=== PATIENT | male | born 1995 | race Caucasian/White ===

== ENCOUNTER 2016-09-23 08:51 | Inpatient (IN) | payer OTHER ==
[~2016-09-23] VITALS: Ht 172.7 cm; Wt 64.8 kg
[2016-09-23] VITALS (10 sets, daily range): BP systolic 102–139; BP diastolic 62–93; PULSE 109–129; RESP 17–22; TEMP 97–98.6; O2SAT 97–100
[~2016-09-23 08:51] MED LIST: AMAN100C18 PO; BACL10TA PO; COMMODE PAIL WI1 MIS; DILT30TA PO; DIVA250ER PO; HOSP BED1; IBUP-232 PO; KEPP10002 PO; LORA-392 PO; METO25TA3 PO; OXYC-392 PO; POLY99.0 EACH EYE; PRED1SUS LEFT EYE; SENN1TAB2 PO; SERT25TA83 PO; TRANMIS2; [UNRECOGNIZED DRUG - OTHER]; [UNRECOGNIZED DRUG - SUPPLY]
[2016-09-23] MEDS ORDERED: LORazepam 2 MG/ML VIAL ONE (09:06)
[2016-09-23] MEDS ORDERED: levETIRAcetam 1000 MG INJ 100 ML IV ONE ×3 (09:15→21:00)
[2016-09-23] MEDS ORDERED: LORazepam 2 MG/ML VIAL IV PUSH ONE (09:15)
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
[2016-09-23 09:18] LABS: AUTOMATED NEUTROPHIL # 3.4 TH/MM3 (1.8-7.7); BASOPHIL % 0.5 % (0.0-2.0); EOSINOPHIL # 0.2 TH/MM3 (0-0.4); EOSINOPHIL % 3.6 % (0.0-4.0); HEMATOCRIT 42.8 % (39.0-51.0); HEMO FLAGS DIFF FINAL; LYMPH % 23.9 % (9.0-44.0); LYMPHOCYTE # 1.4 TH/MM3 (1.0-4.8); MEAN CELL VOLUME 88.5 FL (80.0-100.0); MEAN CORPUSCULAR HEMOGLOBIN 30.2 PG (27.0-34.0); MEAN CORPUSCULAR HGB CONC 34.2 % (32.0-36.0); MONO % 13.3 % (0.0-8.0); NEUT % 58.7 % (16.0-70.0); PLATELET COUNT 246 TH/MM3 (150-450); RED BLOOD COUNT 4.84 MIL/MM3 (4.50-5.90); RED CELL DISTRIBUTION WIDTH 14.2 % (11.6-17.2); WHITE BLOOD COUNT 5.9 TH/MM3 (4.0-11.0)
[2016-09-23] MEDS ORDERED: SENN8.6C PO (09:18)
[2016-09-23 09:33] LABS: BICARBONATE 30.8 MEQ/L (21.0-32.0); MAGNESIUM 1.9 MG/DL (1.5-2.5)
[2016-09-23 09:35] LABS: POTASSIUM 4.6 MEQ/L (3.5-5.1)
--- NOTE | 2016-09-23 09:49 | RADRPT ---
EXAM DATE/TIME: 09/23/2016 09:22 [facility] COMPARISON: CT BRAIN W/O CONTRAST, August 13, 2016, 22:39. INDICATIONS : Seizure today RADIATION DOSE: 39.53 CTDIvol (mGy) MEDICAL HISTORY : Traumatic brain injury SURGICAL HISTORY : Craniotomy. [employer] shunt ENCOUNTER: Initial ACUITY: 1 day PAIN SCALE: 0/10 LOCATION: cranial TECHNIQUE: Multiple contiguous axial images were obtained of the head. Using automated exposure control and adj ustment of the mA and/or kV according to patient size, radiation dose was kept as low as reasonably a chievable to obtain optimal diagnostic quality images. FINDINGS: Postsurgical changes are again noted status post right temporal and frontal craniotomy. The vent ricular shunt catheter remains in place via a left frontal approach with the tip in the right lateral ventricle. The ventricular system is stable in appearance with diffuse dilatation. A low density are a is again noted along the right frontal and temporal lobes. This is not significantly changed. There is no new intracranial hemorrhage, mass effect or midline shift. The posterior fossa and brainstem r emain intact. CONCLUSION: 1. No acute hemorrhage or mass effect. 2. Stable postsurgical changes. 3. Ventricular shunt catheter remains in place with stable appearance of the ventricular system. Farzad Smith MD on September 23, 2016 at 9:39 Board Certified Radiologist. This report was verified electronically.
--- NOTE | 2016-09-23 11:04 | RADRPT ---
EXAM DATE/TIME: 09/23/2016 10:14 [facility] COMPARISON: CT BRAIN W/O CONTRAST, September 23, 2016, 9:22. INDICATIONS : Seizures. MEDICAL HISTORY : Traumatic brain injury SURGICAL HISTORY : Craniotomy, INS[employer]OR [employer] shunt ENCOUNTER: Initial ACUITY: 1 day PAIN SCORE: Non-responsive. LOCATION: cranial FINDINGS: Radiograph of the skull, neck, chest and abdomen performed to evaluate shunt patency. The shunt cath eter is seen entering the left frontoparietal region with its tip crossing midline. The catheter is continuous in its course terminating in the midabdomen No catheter disruption is iden tified. The visualized heart, lungs and abdominal structures are intact. CONCLUSION: Intact shunt. Shaun Wallace MD on September 23, 2016 at 11:00 Board Certified Radiologist. This report was verified electronically.
[2016-09-23] MEDS ORDERED: SODIUM CHLORIDE 0.9% FLUSH 5 ML FLUSH IVF PRN (11:45)
[2016-09-23] MEDS ORDERED: LORazepam 2 MG/ML VIAL IM ONE (11:45)
[2016-09-23] MEDS ORDERED: LORazepam 2 MG/ML VIAL IV PRN ×2 (11:45→12:00)
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
[2016-09-23] MEDS ORDERED: ARTIFICIAL TEARS OPTH SOLN 15 ML BTL EACH EYE PRN (12:00)
[2016-09-23] MEDS ORDERED: DOCUSATE SODIUM 50 MG/SENNA 8.6 MG TAB PO PRN (12:00)
[2016-09-23] MEDS ORDERED: AMANTADINE HCL 100 MG CAP PO SCH (12:00)
[2016-09-23] MEDS ORDERED: ACETAMINOPHEN 325 MG TAB PO PRN (12:00)
[2016-09-23] MEDS ORDERED: BACLOFEN 10 MG TAB PO SCH (13:00)
[2016-09-23] MEDS ORDERED: PHENYTOIN INJ 1,000 MG in SODIUM CHLORIDE 0.9% INJ 100 ML IV ONE ×4 (13:00)
[2016-09-23] MEDS: DILTIAZEM HCL 30 MG TAB PO SCH ×2 (13:21→21:35)
[2016-09-23] MEDS: prednisoLONE ACETATE 1% OPHT SUSP 5 ML BTL LEFT EYE SCH ×2 (13:21→21:00)
[2016-09-23] MEDS ORDERED: METOPROLOL TARTRATE 5 MG/5 ML VIAL IV PUSH PRN (13:45)
[2016-09-23] MEDS: IBUPROFEN 600 MG TAB PO SCH ×2 (13:52→21:36)
[2016-09-23] MEDS: ONDANSETRON HCL 4 MG/2 ML VIAL IV PRN (14:15)
[2016-09-23] MEDS: DEXT 5%-NACL 0.45% 1000 ML INJ 1,000 ML IV SCH (14:15)
--- NOTE | 2016-09-23 17:46 | EKG ---
Date Performed: 09/23/2016 Time Performed: 08:58:34 PTAGE: 20 years EKG: Sinus rhythm MARKED RIGHT AXIS DEVIATION NONSPECIFIC ST ELEVATION Since previous tracing, no significant change n oted ABNORMAL ECG PREVIOUS TRACING : 05/30/2016 05.19.28 DOCTOR: Mathew Whipple Interpretating Date/Time 09/23/2016 17:44:34
[2016-09-23] MEDS: SODIUM CHLORIDE 0.9% FLUSH 5 ML FLUSH IVF SCH (21:00)
[2016-09-23] MEDS ORDERED: levETIRAcetam 500 MG TAB PO SCH (21:00)
[2016-09-23] MEDS ORDERED: DIVALPROEX SODIUM E.R. 250 MG TAB PO SCH (21:00)
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
[2016-09-23] MEDS ORDERED: PILL SPLITTER OTHER PRN (21:30)
[2016-09-23] MEDS: DOCUSATE SODIUM 50 MG/SENNA 8.6 MG TAB PO SCH (21:36)
[2016-09-23] MEDS: METOPROLOL TARTRATE 25 MG TAB PO SCH (21:36)
[2016-09-23] MEDS: PHENYTOIN INJ 100 MG/2 ML VIAL IVS SCH (21:37)
[2016-09-23] MEDS: DIVALPROEX SODIUM E.R. 500 MG TAB PO SCH (21:41)
--- NOTE | 2016-09-23 23:08 | PD.CONS ---
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 Cool and dry. HEAD: Atraumatic. Normocephalic. No temporal or scalp tenderness.Shunt tract without edema or erythema EYES: left corneal opacity ENT: oropharynx clear NECK: Trachea midline. No JVD or lymphadenopathy. Supple, nontender, no meningeal signs. CARDIOVASCULAR: Regular rate and rhythm without murmurs, gallops, or rubs. RESPIRATORY: Clear to auscultation. Breath sounds equal bilaterally. No wheezes , rales, or rhonchi. GASTROINTESTINAL: Abdomen soft, non-tender, nondistended. No hepato-splenomegaly , or palpable masses. No guarding. MUSCULOSKELETAL: left upper and bilateral lower extremity flexion contractures. left lower extremity atrophy NEUROLOGICAL: Awake and alert. left facial paresis disconjugate EOM follows simple commands responds to some questions significant dysarthria left hemiparesis Laboratory Laboratory Tests Test 09/23/16 09:05 White Blood Count 5.9 Red Blood Count 4.84 Hemoglobin 14.6 Hematocrit 42.8 Mean Corpuscular Volume 88.5 Mean Corpuscular Hemoglobin 30.2 Mean Corpuscular Hemoglobin 34.2 Concent Red Cell Distribution Width 14.2 Platelet Count 246 Mean Platelet Volume 8.7 Neutrophils (%) (Auto) 58.7 Lymphocytes (%) (Auto) 23.9 Monocytes (%) (Auto) 13.3 Eosinophils (%) (Auto) 3.6 Basophils (%) (Auto) 0.5 Neutrophils # (Auto) 3.4 Lymphocytes # (Auto) 1.4 Monocytes # (Auto) 0.8 Eosinophils # (Auto) 0.2 Basophils # (Auto) 0.0 CBC Comment DIFF FINAL Differential Comment Sodium Level 137 Potassium Level 4.6 Chloride Level 99 Carbon Dioxide Level 30.8 Anion Gap 7 Blood Urea Nitrogen 14 Creatinine 0.67 Estimat Glomerular Filtration 148 Rate Random Glucose 81 Calcium Level 9.7 Magnesium Level 1.9 Total Creatine Kinase 100 Valproic Acid (Depakene) Level 23 Result Diagram: 09/23/16 0905 09/23/16 0905 Imaging 09/23/16 CT Head images reviewed. Moderate hydrocephalus. Shunt Study (Imaging) 09/23/16 0000 Signed Impressions: Service Date/Time: Friday, September 23, 2016 10:14 - CONCLUSION: Intact shunt. Shaun Wallace MD Head CT 09/23/16 0000 Signed Impressions: Service Date/Time: Friday, September 23, 2016 09:22 - CONCLUSION: 1. No acute hemorrhage or mass effect. 2. Stable postsurgical changes. 3. Ventricular shunt catheter remains in place with stable appearance of the ventricular system. Farzad Smith MD Assessment and Plan Assessment and Plan History TBI Possible seizure persistent hydrocephalus. No evidence shunt infection Plan Shunt valve adjusted to 30 mm pressure in ED D/W patients mother in ED check CT in AM Gustavo Laboy MD Sep 23, 2016 23:08
[2016-09-24] MEDS: DEXT 5%-NACL 0.45% 1000 ML INJ 1,000 ML IV SCH ×2 (01:40→13:35)
[2016-09-24 05:30] VITALS: BP 128/69; PULSE 108; RESP 18; TEMP 98.2; O2SAT 99
[2016-09-24] MEDS: IBUPROFEN 600 MG TAB PO SCH ×3 (05:43→21:01)
[2016-09-24] MEDS: PHENYTOIN INJ 100 MG/2 ML VIAL IVS SCH ×3 (05:44→21:00)
[2016-09-24] MEDS: SERTRALINE HCL 50 MG TAB PO SCH (08:06)
[2016-09-24] MEDS: DIVALPROEX SODIUM E.R. 500 MG TAB PO SCH ×2 (08:06→21:00)
[2016-09-24] MEDS: levETIRAcetam 500 MG TAB PO SCH ×2 (08:07→21:00)
[2016-09-24] MEDS: DILTIAZEM HCL 30 MG TAB PO SCH ×4 (08:07→21:00)
[2016-09-24] MEDS: METOPROLOL TARTRATE 25 MG TAB PO SCH ×2 (08:07→21:00)
[2016-09-24] MEDS: SODIUM CHLORIDE 0.9% FLUSH 5 ML FLUSH IVF SCH ×2 (08:08→21:02)
[2016-09-24] MEDS: prednisoLONE ACETATE 1% OPHT SUSP 5 ML BTL LEFT EYE SCH ×4 (08:10→20:59)
--- NOTE | 2016-09-24 08:10 | HHI.PR ---
Review/Management Diagnosis/Plan: (1) Seizure Plan: ? etiology low depakote levels. offending meds would include amantadine, baclofen recs eeg-peniding depakote/dilantin level pending d/c planning once levels therapeutic d/w pt/mom mom wants gi to see him to get peg removed (2) Traumatic brain injury Subjective Subjective Comments No acute events reported; no sz's No headache No chest pain No dyspnea Active Medications Current Medications Medications (Trade) Dose Ordered Sig/Devan Route Start Time Stop Time Status Last Admin (NS Flush) 2 ml UNSCH PRN IVF 09/23/16 11:45 (NS Flush) 2 ml BID IVF 09/23/16 21:00 09/23/16 21:00 (Zofran Inj) 4 mg Q6H PRN IV 09/23/16 11:45 09/23/16 14:15 (Tylenol) 650 mg Q4H PRN PO 09/23/16 12:00 (Anna-Colace) 1 tab BID PRN PO 09/23/16 12:00 (Symmetrel) 200 mg BID@07,12 PO 09/23/16 12:00 09/23/16 13:21 (Cardizem) 30 mg QID PO 09/23/16 13:00 09/23/16 21:35 (Motrin) 600 mg Q8HR PO 09/23/16 14:00 09/24/16 05:43 (Lopressor) 25 mg BID PO 09/23/16 21:00 09/23/16 21:36 (Roxicodone) 5 mg Q4H PRN PO 09/23/16 12:00 (Tears Naturale Opth Soln) 2 drop Q6HR PRN EACH EYE 09/23/16 12:00 (Pred Forte 1% Opth Susp) 1 drop QID LEFT EYE 09/23/16 13:00 09/23/16 13:21 (Zoloft) 25 mg DAILY PO 09/24/16 09:00 (Anna-Colace) 1 tab HS PO 09/23/16 21:00 09/23/16 21:36 (Ativan Inj) 2 mg Q10M PRN IV 09/23/16 12:00 (Dilantin Inj) 150 mg Q8H IVS 09/23/16 21:00 09/24/16 05:44 (Keppra) 500 mg Q12HR PO 09/24/16 09:00 Metoprolol Tartrate 1.25 mg 1.25 mg Q6H PRN IV PUSH 09/23/16 13:45 09/23/16 16:35 (D5W-1/2 NS 1000 ml Inj) 1,000 ml @ 84 mls/hr [id number] IV 09/23/16 13:45 09/23/16 14:15 (Lioresal) 5 mg BID PO 09/24/16 09:00 (Depakote Er) 500 mg BID PO 09/23/16 21:15 09/23/16 21:41 (Pill Splitter) 1 ea UNSCH PRN OTHER 09/23/16 21:30 Allergies Allergies Coded Allergies *MDRO Multi-Drug Resistant Organism (Verified Adverse Reaction, Unknown, ) Review of Systems All other ROS: ROS reviewed as documented in chart, Unable to obtain Exam I&O / VS 09/23/16 09/23/16 09/24/16 15:00 23:00 07:00 Intake Total 0 ml 0 ml Output Total 150 ml Balance 0 ml -150 ml Intake Oral 0 ml 0 ml Output Urine Total 150 ml # Voids 1 4 # Bowel Movements 0 0 Vital Signs Date Time Temp Pulse Resp B/P Pulse Ox O2 Delivery O2 Flow Rate FiO2 09/24/16 05:30 98.2 108 18 128/69 99 09/23/16 23:22 97.9 110 17 130/67 100 09/23/16 23:00 129 09/23/16 21:45 98.3 110 17 136/72 100 09/23/16 18:57 97.0 111 19 124/75 100 09/23/16 17:20 126 18 102/62 98 Room Air 09/23/16 16:34 128 18 139/86 99 Room Air 09/23/16 15:08 112 18 138/76 98 Room Air 09/23/16 11:47 97 09/23/16 11:00 110 20 126/93 97 Room Air 09/23/16 09:04 98.6 109 22 127/76 99 Respiratory: Lungs CTA, Non-labored respirations Cardiology: Normal rate, Regular Rhythm Neurologic: Alert Psychiatric: Cooperative Exam Comments ox 1. dysfluency, follows some simple request, os-blind, left facial weakness, left spastic hemiparesis 1-2 Objective Micro and Labs Laboratory Tests Test 09/23/16 09:05 White Blood Count 5.9 Red Blood Count 4.84 Hemoglobin 14.6 Hematocrit 42.8 Mean Corpuscular Volume 88.5 Mean Corpuscular Hemoglobin 30.2 Mean Corpuscular Hemoglobin 34.2 Concent Red Cell Distribution Width 14.2 Platelet Count 246 Mean Platelet Volume 8.7 Neutrophils (%) (Auto) 58.7 Lymphocytes (%) (Auto) 23.9 Monocytes (%) (Auto) 13.3 Eosinophils (%) (Auto) 3.6 Basophils (%) (Auto) 0.5 Neutrophils # (Auto) 3.4 Lymphocytes # (Auto) 1.4 Monocytes # (Auto) 0.8 Eosinophils # (Auto) 0.2 Basophils # (Auto) 0.0 CBC Comment DIFF FINAL Differential Comment Sodium Level 137 Potassium Level 4.6 Chloride Level 99 Carbon Dioxide Level 30.8 Anion Gap 7 Blood Urea Nitrogen 14 Creatinine 0.67 Estimat Glomerular Filtration 148 Rate Random Glucose 81 Calcium Level 9.7 Magnesium Level 1.9 Total Creatine Kinase 100 Valproic Acid (Depakene) Level 23 Problem Qualifiers (1) Traumatic brain injury: Qualified Code: S06.9X9S - Traumatic brain injury, with loss of consciousness of unspecified duration, sequela Earl Vang MD Sep 24, 2016 08:10
[2016-09-24] MEDS ORDERED: BACLOFEN 10 MG TAB PO SCH (09:00)
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
--- NOTE | 2016-09-24 09:48 | RADRPT ---
EXAM DATE/TIME: 09/24/2016 08:33 [facility] COMPARISON: CT BRAIN W/O CONTRAST, September 23, 2016, 9:22. INDICATIONS: Hydrocephalus, shunt valve changed RADIATION DOSE: 41.62 CTDIvol (mGy) MEDICAL HISTORY: Traumatic brain injury SURGICAL HISTORY: Craniotomy. ENCOUNTER: Subsequent ACUITY: 1 day PAIN SCALE: Non-responsive LOCATION: Cranial TECHNIQUE: Multiple contiguous axial images were obtained of the head. Using automated exposure control and adjustment of the mA and/or kV according to patient size, radiation dose was kept as low as reasonably achievable to obtain optimal diagnostic quality images. FINDINGS: HUMAN RESOURCE ASSISTANT shunt is seen entering from the left. Ventricles remain prominent. Third ventricle remai ns prominent. Fourth ventricle is normal in size. There is no parenchymal hemorrhage, acute infarction or mass lesion. There are no extraaxial fluid collections appreciated. CONCLUSION: Prominent ventricles, unchanged in the interval. Akash Boone MD FACR on September 24, 2016 at 9:33 Board Certified Radiologist. This report was verified electronically.
[2016-09-24 11:00] LABS: AUTOMATED NEUTROPHIL # 3.7 TH/MM3 (1.8-7.7); BASOPHIL % 0.4 % (0.0-2.0); EOSINOPHIL # 0.2 TH/MM3 (0-0.4); EOSINOPHIL % 3.1 % (0.0-4.0); HEMATOCRIT 42.8 % (39.0-51.0); HEMO FLAGS DIFF FINAL; LYMPH % 21.3 % (9.0-44.0); LYMPHOCYTE # 1.3 TH/MM3 (1.0-4.8); MEAN CELL VOLUME 88.8 FL (80.0-100.0); MEAN CORPUSCULAR HEMOGLOBIN 30.9 PG (27.0-34.0); MEAN CORPUSCULAR HGB CONC 34.8 % (32.0-36.0); MONO % 15.3 % (0.0-8.0); NEUT % 59.9 % (16.0-70.0); PLATELET COUNT 314 TH/MM3 (150-450); RED BLOOD COUNT 4.82 MIL/MM3 (4.50-5.90); RED CELL DISTRIBUTION WIDTH 14.3 % (11.6-17.2); WHITE BLOOD COUNT 6.1 TH/MM3 (4.0-11.0)
[2016-09-24] MEDS ORDERED: PRED1SUS LEFT EYE (11:32)
[2016-09-24 13:35] LABS: BICARBONATE 29.5 MEQ/L (21.0-32.0); POTASSIUM 4.1 MEQ/L (3.5-5.1)
--- NOTE | 2016-09-24 14:14 | PD.CONS ---
HPI History of Present Illness This is a 20 year old male patient was involved in a [facility] in April of 2015, at which time he sustained multiple injuries including a traumatic brain injury with subarachnoid hemorrhage and a small right subdural hematoma, bilateral pulmonary contusions left greater than right, left clavicle fracture, nondisplaced L wrist, lunate dislocation, scaphoid fracture, and a displaced ulnar styloid fracture. During that hospitalization, he had a PEG tube placed originally on 05/15/16. He was then discharged to a bat carrier home on 06/05/16 and returned to the hospital on 06/23/16 to have replacement of the craniotomy bone flap, but his CT of the head on 06/24/16 revealed significant hydrocephalus with primarily right hemisphere subdural effusion and he subsequently had COAT AGENT shunt placed on 06/23/16. During this hospitalization, he was found to have his PEG tube dislodged with the stoma closed and subsequently underwent another EGD with peg tube placement on 07/14/16. He then dislodged this again in July and August and required repeat EGD with PEG tube placement. He has since been discharged home and is living with his mother. She reports that he has not used the tube since his discharge home and that he is eating all meals- almost always 100% without coughing or signs of aspiration and that he takes his medications without problems. She reports that she is actually in the process of getting a referral to GI to have this removed, but ended up back in the hospital for seizure activity. He is being worked up by neurology. ST has evaluated the patient and he has passed his swallow evaluation and they have recommended regular diet with thin liquids. His mother is concerned that he will dislodge the peg, as she reports that he is constantly pulling at it. She would like this removed during this hospitalization. (Salima LunaP) PFSH Past Medical History Hx [facility] with multiple injuries including severe traumatic brain injury with subarachnoid hemorrhage and a small right subdural hematoma, bilateral pulmonary contusions left greater than right, left clavicle fracture, nondisplaced L wrist, lunate dislocation, scaphoid fracture, and a displaced ulnar styloid fracture. 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) Medications Allergies Coded Allergies Type Severity Reaction Last Updated Verified *MDRO Multi-Drug Resistant Organism Adverse Reaction Unknown 09/03/16 Yes Active Scripts Medications Dose Route/Sig Days Date Category Dose Instructions Pred Forte Opth Drops (Prednisolone Acetate Opth Drops) 1% Susp 1 Drop LEFT EYE QID 09/24/16 Rx Senna (Sennosides) 8.6 Mg Cap 8.6 Mg PO HS 09/23/16 Reported Baclofen 10 Mg Tab 10 Mg PO TID 09/10/16 Rx Senna-Docusate Sodium (Sennosides-Docusate Sodium) 8.6-50 Mg Tab 2 Tab PO BID PRN 09/03/16 Rx [G-tube] 09/03/16 Rx Remove G-tube if can be done by home health [Overbed trapeze] 09/03/16 Rx Sertraline (Sertraline HCl) 25 Mg Tab 25 Mg PO DAILY 09/03/16 Rx Oxycodone (Oxycodone HCl) 5 Mg Tab 5 Mg PO Q4H PRN 09/03/16 Rx Ibuprofen 600 Mg Tab 600 Mg PO Q8HR 09/03/16 Rx Depakote ER (Divalproex Sodium) 250 Mg Carol 250 Mg PO BID 08/22/16 Rx Ativan (Lorazepam) 0.5 Mg Tab 0.5 Mg PO Q12H PRN 08/22/16 Rx Keppra (Levetiracetam) 1,000 Mg Tab 1,500 Mg PO BID 08/22/16 Rx Amantadine (Amantadine HCl) 100 Mg Cap 200 Mg PO BID@07,12 08/22/16 Rx Metoprolol Tartrate 25 Mg Tab 25 Mg PO BID 08/22/16 Rx Diltiazem (Diltiazem HCl) 30 Mg Tab 30 Mg PO QID 08/22/16 Rx Artificial Tears Opth Drops (Polyvinyl Alcohol) 1.4% Soln 1-2 Drop EACH EYE Q6HR PRN 30 08/22/16 Rx Commode With Arms (Device) 1 Mis Mis 1 Ea .ROUTE DIRECTED 08/19/16 Rx Hospital Bed - Electric 1 Ea Ea 1 Ea .ROUTE DIRECTED 08/19/16 Rx Transfer Board/28"X8-/4" (Device) 1 Mis Mis 1 Ea .ROUTE DIRECTED 08/19/16 Rx Family History Noncontributory Social History Resides with mother, no use of tobacco, etoh, illicit drug use (JeremySalima) Review of Systems Gastrointestinal: DENIES: Abdominal pain, Difficulty Swallowing, Odynophagia Psychiatric: COMPLAINS OF: Anxiety, Confusion, Mood changes ROS Difficult to obtain secondary to mental status (LunaSalima) GI Exam Vitals I&O Vital Signs Date Time Temp Pulse Resp B/P Pulse Ox O2 Delivery O2 Flow Rate FiO2 09/24/16 05:30 98.2 108 18 128/69 99 09/23/16 23:22 97.9 110 17 130/67 100 09/23/16 23:00 129 09/23/16 21:45 98.3 110 17 136/72 100 09/23/16 18:57 97.0 111 19 124/75 100 09/23/16 17:20 126 18 102/62 98 Room Air 09/23/16 16:34 128 18 139/86 99 Room Air 09/23/16 15:08 112 18 138/76 98 Room Air I/O 09/23/16 09/23/16 09/23/16 09/24/16 09/24/16 09/24/16 07:00 15:00 23:00 07:00 15:00 23:00 Intake Total 0 ml 0 ml Output Total 150 ml Balance 0 ml -150 ml Intake Oral 0 ml 0 ml Output Urine Total 150 ml # Voids 1 4 # Bowel Movements 0 0 Imaging Last Impressions Shunt Study (Imaging) 09/23/16 0000 Signed Impressions: Service Date/Time: Friday, September 23, 2016 10:14 - CONCLUSION: Intact shunt. Shaun Wallace MD Head CT 09/23/16 0000 Signed Impressions: Service Date/Time: Friday, September 23, 2016 09:22 - CONCLUSION: 1. No acute hemorrhage or mass effect. 2. Stable postsurgical changes. 3. Ventricular shunt catheter remains in place with stable appearance of the ventricular system. Farzad Smith MD Laboratory Test 09/24/16 10:37 White Blood Count 6.1 TH/MM3 Red Blood Count 4.82 MIL/MM3 Hemoglobin 14.9 GM/DL Hematocrit 42.8 % Mean Corpuscular Volume 88.8 FL Mean Corpuscular Hemoglobin 30.9 PG Mean Corpuscular Hemoglobin 34.8 % Concent Red Cell Distribution Width 14.3 % Platelet Count 314 TH/MM3 Mean Platelet Volume 8.7 FL Neutrophils (%) (Auto) 59.9 % Lymphocytes (%) (Auto) 21.3 % Monocytes (%) (Auto) 15.3 % Eosinophils (%) (Auto) 3.1 % Basophils (%) (Auto) 0.4 % Neutrophils # (Auto) 3.7 TH/MM3 Lymphocytes # (Auto) 1.3 TH/MM3 Monocytes # (Auto) 0.9 TH/MM3 Eosinophils # (Auto) 0.2 TH/MM3 Basophils # (Auto) 0.0 TH/MM3 CBC Comment DIFF FINAL Differential Comment Sodium Level 137 MEQ/L Potassium Level 4.1 MEQ/L Chloride Level 101 MEQ/L Carbon Dioxide Level 29.5 MEQ/L Anion Gap 7 MEQ/L Blood Urea Nitrogen 13 MG/DL Creatinine 0.73 MG/DL Estimat Glomerular Filtration 134 ML/MIN Rate Random Glucose 87 MG/DL Calcium Level 9.7 MG/DL Phenytoin (Dilantin) Level 10.1 MCG/ML Valproic Acid (Depakene) Level 39 MCG/ML Physical Examination HEENT: Normocephalic; atraumatic; no jaundice. CHEST: CTA CARDIAC: RRR ABDOMEN: Soft, nondistended, nontender; no hepatosplenomegaly; bowel sounds are present in all four quadrants. PEG tube with small amount of dried blood at site- no redness, swelling, drainage EXTREMITIES: No clubbing, cyanosis, or edema. SKIN: Normal; no rash; no jaundice. TELEVISION PRESENTER: Alert, answer simple questions. Unable to provide history (Salima Luna) Assessment and Plan Plan ASSESSMENT: - Consulted for PEG tube removal. Pt with hx of TBI with SAH and small right SDH. He had PEG tube placed for nutrition originally on 05/15/16, and again in June, July, and August, after he dislodged his PEG and the stoma closed prior to having new one placed. He has since been discharged home and his mother reports that he is eating 100% meals and medications with no signs of aspiration. ST is following and has recommended regular diet with thin liquids. His mother reports that he often pulls at the tube and is in the process of getting a referral as outpatient to have this removed. S/P removal of PEG tube without difficulty. D/W nurse/mother for him to remain NPO for 4 hours. PLAN: - S/P PEG tube removal - NPO x 4 hours, then resume diet - GI will sign off, please reconsult as needed - Pt seen and examined by Dr. Ballard and myself and this note is written on his behalf (Salima Luna) Physician Comments Seen and examined with DIRECTOR LABOR STANDARDS< PEG removed at the bedside after discussion with Mom. Tolerating PO. Reconsult as needed. Thank you (Chioma Ballard MD) Salima Luna Sep 24, 2016 14:14 Chioma Ballard MD Sep 24, 2016 16:57
[2016-09-24 20:00] VITALS: BP 103/77; PULSE 91; RESP 18; TEMP 97.3; O2SAT 97
[2016-09-24] MEDS: BACLOFEN 10 MG TAB PO SCH (21:00)
[2016-09-24] MEDS: DOCUSATE SODIUM 50 MG/SENNA 8.6 MG TAB PO SCH (21:01)
--- NOTE | 2016-09-24 21:22 | HHI.NSPN ---
History Interval History Patient status post severe traumatic brain injury status post decompressive craniotomy, subsequent bone flap replacement. Previous ventriculoperitoneal shunt placement. Now admitted for probable new onset seizure. CT scan head reveals significant persistent ventriculomegaly. 09/23/16: Shunt valve adjusted to 30 mm water pressure. 09/24/16: Follow-up CT scan had stable. Neurologic exam stable Exam Results Vital Signs Date Time Temp Pulse Resp B/P Pulse Ox O2 Delivery O2 Flow Rate FiO2 09/24/16 05:30 98.2 108 18 128/69 99 09/23/16 17:20 Room Air Intake and Output 09/23/16 09/23/16 09/24/16 08:00 16:00 00:00 Intake Total 0 ml Balance 0 ml Physical Examination Respirations clear Cardiac regular Abdomen soft nontender Shunt tract without erythema or edema or tenderness Relatively awake and alert Tries to say a few words Significant dysarthria Tracks with disconjugate gaze No nuchal rigidity. No significant neck tenderness Grasps with right upper extremity to command. Positive contractures left upper and lower extremity Lab, Micro, Other Results 09/24/16 CT scan head images reviewed. No definite change in ventricular size with shunt adjustment Head CT 09/24/16 0000 Signed Impressions: Service Date/Time: Saturday, September 24, 2016 08:33 - CONCLUSION: Prominent ventricles, unchanged in the interval. Akash Boone MD FACR Laboratory Tests Test 09/24/16 10:37 White Blood Count 6.1 TH/MM3 Red Blood Count 4.82 MIL/MM3 Hemoglobin 14.9 GM/DL Hematocrit 42.8 % Mean Corpuscular Volume 88.8 FL Mean Corpuscular Hemoglobin 30.9 PG Mean Corpuscular Hemoglobin 34.8 % Concent Red Cell Distribution Width 14.3 % Platelet Count 314 TH/MM3 Mean Platelet Volume 8.7 FL Neutrophils (%) (Auto) 59.9 % Lymphocytes (%) (Auto) 21.3 % Monocytes (%) (Auto) 15.3 % Eosinophils (%) (Auto) 3.1 % Basophils (%) (Auto) 0.4 % Neutrophils # (Auto) 3.7 TH/MM3 Lymphocytes # (Auto) 1.3 TH/MM3 Monocytes # (Auto) 0.9 TH/MM3 Eosinophils # (Auto) 0.2 TH/MM3 Basophils # (Auto) 0.0 TH/MM3 CBC Comment DIFF FINAL Differential Comment Sodium Level 137 MEQ/L Potassium Level 4.1 MEQ/L Chloride Level 101 MEQ/L Carbon Dioxide Level 29.5 MEQ/L Anion Gap 7 MEQ/L Blood Urea Nitrogen 13 MG/DL Creatinine 0.73 MG/DL Estimat Glomerular Filtration 134 ML/MIN Rate Random Glucose 87 MG/DL Calcium Level 9.7 MG/DL Phenytoin (Dilantin) Level 10.1 MCG/ML Valproic Acid (Depakene) Level 39 MCG/ML Medical Decision Making Impression and Plan Impression: 1. Stable neurologic function and CT scan head following shunt adjustment. Plan: Discussed with patient's mother today Continue observation. Plan follow-up CT scan in 7-10 days No definite evidence of shunt infection at present Gustavo Laboy MD Sep 24, 2016 21:22
[2016-09-25] VITALS: BP 110/79; PULSE 83; RESP 18; TEMP 97; O2SAT 98
[2016-09-25] MEDS: DEXT 5%-NACL 0.45% 1000 ML INJ 1,000 ML IV SCH ×2 (01:30→13:25)
[2016-09-25 04:00] VITALS: BP 118/73; PULSE 86; RESP 18; TEMP 97.4; O2SAT 97
[2016-09-25] MEDS: PHENYTOIN INJ 100 MG/2 ML VIAL IVS SCH ×3 (05:27→21:29)
[2016-09-25] MEDS: IBUPROFEN 600 MG TAB PO SCH ×3 (05:30→21:28)
[2016-09-25] MEDS: SODIUM CHLORIDE 0.9% FLUSH 5 ML FLUSH IVF SCH ×2 (08:16→21:25)
[2016-09-25] MEDS: DILTIAZEM HCL 30 MG TAB PO SCH ×4 (08:16→21:39)
[2016-09-25] MEDS: DIVALPROEX SODIUM E.R. 500 MG TAB PO SCH ×2 (08:16→21:00)
[2016-09-25] MEDS: BACLOFEN 10 MG TAB PO SCH ×2 (08:17→21:29)
[2016-09-25] MEDS: levETIRAcetam 500 MG TAB PO SCH ×3 (08:17→21:32)
[2016-09-25] MEDS: SERTRALINE HCL 50 MG TAB PO SCH (08:17)
[2016-09-25] MEDS: METOPROLOL TARTRATE 25 MG TAB PO SCH ×2 (08:17→21:27)
[2016-09-25] MEDS: prednisoLONE ACETATE 1% OPHT SUSP 5 ML BTL LEFT EYE SCH ×4 (08:17→21:32)
[2016-09-25 08:27] VITALS: BP 134/72; PULSE 96; RESP 16; TEMP 96.2; O2SAT 95
--- NOTE | 2016-09-25 09:00 | HHI.PR ---
Review/Management Diagnosis/Plan: (1) Seizure Plan: ? etiology low depakote levels. offending meds would include amantadine, baclofen stable recs eeg-pending depakote 50 d/c dilantin on d/c keppra increased to 750mg bid d/c planning from neurology (2) Traumatic brain injury Subjective Subjective Comments No acute events reported; no sz slept well; ate well last night per mother at bedside mild frontal headache No chest pain No dyspnea Active Medications Current Medications Medications (Trade) Dose Ordered Sig/Devan Route Start Time Stop Time Status Last Admin (NS Flush) 2 ml UNSCH PRN IVF 09/23/16 11:45 (NS Flush) 2 ml BID IVF 09/23/16 21:00 09/25/16 08:16 (Zofran Inj) 4 mg Q6H PRN IV 09/23/16 11:45 09/23/16 14:15 (Tylenol) 650 mg Q4H PRN PO 09/23/16 12:00 (Anna-Colace) 1 tab BID PRN PO 09/23/16 12:00 (Cardizem) 30 mg QID PO 09/23/16 13:00 09/25/16 08:16 (Motrin) 600 mg Q8HR PO 09/23/16 14:00 09/25/16 05:30 (Lopressor) 25 mg BID PO 09/23/16 21:00 09/25/16 08:17 (Roxicodone) 5 mg Q4H PRN PO 09/23/16 12:00 09/25/16 03:32 (Tears Naturale Opth Soln) 2 drop Q6HR PRN EACH EYE 09/23/16 12:00 (Pred Forte 1% Opth Susp) 1 drop QID LEFT EYE 09/23/16 13:00 09/25/16 08:17 (Zoloft) 25 mg DAILY PO 09/24/16 09:00 09/25/16 08:17 (Anna-Colace) 1 tab HS PO 09/23/16 21:00 09/24/16 21:01 (Ativan Inj) 2 mg Q10M PRN IV 09/23/16 12:00 (Dilantin Inj) 150 mg Q8H IVS 09/23/16 21:00 09/25/16 05:27 (Keppra) 500 mg Q12HR PO 09/24/16 09:00 09/25/16 08:17 Metoprolol Tartrate 1.25 mg 1.25 mg Q6H PRN IV PUSH 09/23/16 13:45 09/23/16 16:35 (D5W-1/2 NS 1000 ml Inj) 1,000 ml @ 84 mls/hr [id number] IV 09/23/16 13:45 09/23/16 14:15 (Depakote Er) 500 mg BID PO 09/23/16 21:15 09/25/16 08:16 (Pill Splitter) 1 ea UNSCH PRN OTHER 09/23/16 21:30 (Lioresal) 5 mg Taper BID PO 09/24/16 21:00 09/28/16 20:59 09/25/16 08:17 Allergies Allergies Coded Allergies *MDRO Multi-Drug Resistant Organism (Verified Adverse Reaction, Unknown, ) Review of Systems All other ROS: ROS reviewed as documented in chart, Unable to obtain Exam I&O / VS 09/24/16 09/24/16 09/25/16 15:00 23:00 07:00 Intake Total 600 ml 120 ml Balance 600 ml 120 ml Intake Oral 600 ml 120 ml # Voids 6 2 # Bowel Movements 2 Vital Signs Date Time Temp Pulse Resp B/P Pulse Ox O2 Delivery O2 Flow Rate FiO2 09/25/16 08:27 96.2 96 16 134/72 95 09/25/16 04:00 97.4 86 18 118/73 97 09/25/16 00:00 97.0 83 18 110/79 98 09/24/16 20:00 97.3 91 18 103/77 97 Respiratory: Lungs CTA, Non-labored respirations Cardiology: Normal rate, Regular Rhythm Neurologic: Alert Psychiatric: Cooperative Exam Comments ox 1. dysfluency, follows some simple request, os-blind, left facial weakness, left spastic hemiparesis 1-2/5 Objective Micro and Labs Laboratory Tests Test 09/24/16 09/24/16 09/25/16 10:37 20:43 06:53 White Blood Count 6.1 Red Blood Count 4.82 Hemoglobin 14.9 Hematocrit 42.8 Mean Corpuscular Volume 88.8 Mean Corpuscular Hemoglobin 30.9 Mean Corpuscular Hemoglobin 34.8 Concent Red Cell Distribution Width 14.3 Platelet Count 314 Mean Platelet Volume 8.7 Neutrophils (%) (Auto) 59.9 Lymphocytes (%) (Auto) 21.3 Monocytes (%) (Auto) 15.3 Eosinophils (%) (Auto) 3.1 Basophils (%) (Auto) 0.4 Neutrophils # (Auto) 3.7 Lymphocytes # (Auto) 1.3 Monocytes # (Auto) 0.9 Eosinophils # (Auto) 0.2 Basophils # (Auto) 0.0 CBC Comment DIFF FINAL Differential Comment Sodium Level 137 Potassium Level 4.1 Chloride Level 101 Carbon Dioxide Level 29.5 Anion Gap 7 Blood Urea Nitrogen 13 Creatinine 0.73 Estimat Glomerular Filtration 134 Rate Random Glucose 87 Calcium Level 9.7 Phenytoin (Dilantin) Level 10.1 8.6 Valproic Acid (Depakene) Level 39 37 50 Problem Qualifiers (1) Traumatic brain injury: Qualified Code: S06.9X9S - Traumatic brain injury, with loss of consciousness of unspecified duration, sequela Earl Vang MD Sep 25, 2016 09:00
[2016-09-25] MEDS ORDERED: PILL SPLITTER OTHER PRN (09:15)
[2016-09-25] MEDS ORDERED: ceFAZolin 2 GM PREMIX 50 ML IV SCH (10:30)
--- NOTE | 2016-09-25 11:19 | HHI.FPPN ---
Subjective Remarks Patient seen and examined. No acute events overnight. Vital signs stable. Afebrile. Per nurse, patient is a very combative (Dona Collier MD R3) Objective Vitals Vital Signs Date Time Temp Pulse Resp B/P Pulse Ox O2 Delivery O2 Flow Rate FiO2 09/25/16 08:27 96.2 96 16 134/72 95 09/25/16 04:00 97.4 86 18 118/73 97 09/25/16 00:00 97.0 83 18 110/79 98 09/24/16 20:00 97.3 91 18 103/77 97 I/O 09/24/16 09/24/16 09/24/16 09/25/16 09/25/16 09/25/16 07:00 15:00 23:00 07:00 15:00 23:00 Intake Total 0 ml 600 ml 120 ml Output Total 150 ml Balance -150 ml 600 ml 120 ml Intake Oral 0 ml 600 ml 120 ml Output Urine Total 150 ml # Voids 4 6 2 # Bowel Movements 0 2 (Dona Collier MD R3) Result Diagram: 09/24/16 1037 09/24/[address] 09/24/16 0000 Signed Impressions: Service Date/Time: Saturday, September 24, 2016 08:33 - CONCLUSION: Prominent ventricles, unchanged in the interval. Akash Boone MD FACR Shunt Study (Imaging) 09/23/16 0000 Signed Impressions: Service Date/Time: Friday, September 23, 2016 10:14 - CONCLUSION: Intact shunt. Shaun Wallace MD Objective Remarks GENERAL: Well developed thin adult white male lying in bed arousable but minimally cooperative SKIN: No rashes, ecchymoses or lesions. Cool and dry. Multiple tattoos in chest and upper extremities. HEAD: Head with scar from bone flap replacement after craniectomy but only obvious on close examination EYES: Abnormal opaque area central eye on the left but no current ulcer or conjunctival or eyelid problems. ENT: MMM, OP without erythema, tonsillar swelling, or exudate. NECK: Supple, no lymphadenopathy. CARDIOVASCULAR: RRR. Normal S1/S2. No MRG RESPIRATORY: CTAB. No crackles or wheezes. GASTROINTESTINAL: Abdomen soft, non-distended, G-tube removed. Area without evidence of infection. MUSCULOSKELETAL: Extremities without clubbing, cyanosis, or edema. NEUROLOGICAL: Sedated but arousable. Patient is non-cooperative. Unable to assess strength as patient was unwilling to follow commands. (Dona Collier MD R3) A/P Assessment and Plan This is a 20-year-old male past medical history significant for traumatic brain injury admitted for new onset seizures. Clinically stable since admission. No further evidence of seizures. Discharge Planning Anticipate discharge home 1-2 days pending neurology and neurosurgical clearance. s/d/w Dr. Velazquez (Dona Collier MD R3) Attending Attestation Patient seen and examined. Case reviewed and discussed with the resident team. Agree with plan of care as discussed with me and documented in the resident note. unsure if he is taking his meds properly vs spitting them out. his mother seems to have better success in getting him to take his meds. No adverse effects from stopping steroid drops (Caroline Velazquez MD) Problem List: (1) New onset seizure Status: Acute Plan: Admitted for new onset seizures. Had seizure while obtaining H&P. Status post Ativan 2, Keppra 1g x 1, and Dilantin 1 g x 1 in ED. No seizure activity since admission. CT on 09/23 and 09/24 without acute processes. -Neurology consulted: Dilantin level 50 today, Phenytoin 8.6 * Keppra increased to 750mg BID * Depakote ER 500 mg BID * Continue Dilantin 150mg po Q8h and discontinue at discharge -Neurosurgery consulted: Repeat CT on 09/24 stable. No evidence of shunt infection * ?plan to adjust TAIL WORKER shunt * Follow up CT in 7-10 days -Seizure precautions * EEG Ordered: Results pending * CBC, BMP ordered for the a.m. -Avoid seizure lower threshold meds. Amantadine discontinue and weaning Baclofen. (2) Traumatic brain injury Status: Chronic Plan: History of traumatic brain injury. * Continued home pain medications * Continue metoprolol 25 mg by mouth twice a day * PT/OT (3) S/P TAIL WORKER shunt Status: Acute Plan: History of TAIL WORKER shunt. Neurosurgery software sales consultant recommendations appreciated * Possible plan to adjust TAIL WORKER shunt. Will await further recommendations (4) History of gastrostomy tube placement Status: Resolved Plan: Bedside removal of PEG tube on 2/8 per GI as patient is tolerating po. No evidence of infection around site (5) Nutrition, metabolism, and development symptoms Status: Acute Plan: Diet: Regular as tolerated Fluid: HLIV. Encourage oral fluid hydration Electrolytes: WNL. (Dona Collier MD R3) Problem Qualifiers (1) Traumatic brain injury: Qualified Code: S06.9X9S - Traumatic brain injury, with loss of consciousness of unspecified duration, sequela Dona Collier MD R3 Sep 25, 2016 11:19 Caroline Velazquez MD Sep 26, 2016 13:57
[2016-09-25 12:24] VITALS: BP 129/73; PULSE 83; RESP 17; TEMP 96; O2SAT 97
[2016-09-25] MEDS: ONDANSETRON HCL 4 MG/2 ML VIAL IV PRN (13:39)
--- NOTE | 2016-09-25 14:30 | RADRPT ---
EXAM DATE/TIME: 09/25/2016 13:48 [facility] COMPARISON: No previous studies available for comparison. INDICATIONS : Shunt valve setting. MEDICAL HISTORY : None. SURGICAL HISTORY : None. ENCOUNTER: Initial ACUITY: 1 day PAIN SCORE: Non-responsive. LOCATION: skull. FINDINGS: A single view of the skull was obtained and demonstrates the shunt is now in place. The programming u nit demonstrates a pressure setting of approximately 30 mm of water. CONCLUSION: The pressure is set to approximately 30 mm of water. Farzad Smith MD on September 25, 2016 at 14:26 Board Certified Radiologist. This report was verified electronically.
--- NOTE | 2016-09-25 16:17 | MG ---
cc: JORGE MUNGUIA Lab No: [id number] Date: 09/25/2016 Age: 20 Sex: M Race: Hyperventilation, photic stimulation was not performed. A 20-year-old man, twitching of his face, subarachnoid hemorrhage, traumatic brain injury, Keppra, Depakote, Dilantin, Motrin, baclofen. There does appear to be PLED like activity coming out of the right posterior temporal, mid temporal and frontal head region at about 1 Hz. Phase reversing spike is seen ___ slow waves does not really effect the left hemisphere at all and is just on the right side, and this continues throughout the entire recording and is quite prominent as constituting a spike wave at approximately 1 Hz. Some leg jerking was noted which did not correlate with any change in the EEG. A left hand jerk was seen but did not correlate with any significant change in the EEG. IMPRESSION Right hemisphere, pretty much the whole frontal temporal lobe showing a right-sided PLED at 1 Hz in the form of a spike wave continuously throughout the entire recording and a lesion here should be ruled out. This certainly is a seizure focus for this patient. MD RHONDA Becker/REGGIE /2:51 PM /4:03 PM
[2016-09-25 16:26] VITALS: BP 119/70; PULSE 97
[2016-09-25 20:41] VITALS: BP 131/76; PULSE 91; RESP 18; TEMP 97.1; O2SAT 97
[2016-09-25] MEDS: DOCUSATE SODIUM 50 MG/SENNA 8.6 MG TAB PO SCH (21:39)
--- NOTE | 2016-09-25 23:44 | HHI.NSPN ---
History Interval History Patient status post severe traumatic brain injury status post decompressive craniotomy, subsequent bone flap replacement. Previous ventriculoperitoneal shunt placement. Now admitted for probable new onset seizure. CT scan head reveals significant persistent ventriculomegaly. 09/23/16: Shunt valve adjusted to 30 mm water pressure. 09/24/16: Follow-up CT scan had stable. Neurologic exam stable Exam Results Vital Signs Date Time Temp Pulse Resp B/P Pulse Ox O2 Delivery O2 Flow Rate FiO2 09/25/16 22:28 15 09/25/16 20:41 97.1 91 131/76 97 09/23/16 17:20 Room Air Intake and Output 09/24/16 09/24/16 09/25/16 08:00 16:00 00:00 Intake Total 0 ml 600 ml Output Total 150 ml Balance -150 ml 600 ml Physical Examination Respirations clear Cardiac regular Abdomen soft nontender Shunt tract without erythema or edema or tenderness Relatively awake and alert Tries to say a few words Significant dysarthria Tracks with disconjugate gaze No nuchal rigidity. No significant neck tenderness Grasps with right upper extremity to command. Positive contractures left upper and lower extremity Lab, Micro, Other Results Laboratory Tests Test 09/25/16 06:53 Phenytoin (Dilantin) Level 8.6 MCG/ML Valproic Acid (Depakene) Level 50 MCG/ML Medical Decision Making Impression and Plan Impression: 1. Stable neurologic function and CT scan head following shunt adjustment. Plan: Discussed with patient's mother today No significant change in hydrocephalus on CT scan following shunt adjustment. Option of nucleotide shunt study discussed, and she does wish to proceed with this test on Continue observation. Plan follow-up CT scan in 7-10 days No definite evidence of shunt infection at present Gustavo Laboy MD Sep 25, 2016 23:44
[2016-09-26] VITALS (7 sets, daily range): BP systolic 106–134; BP diastolic 57–78; PULSE 74–97; RESP 16–20; TEMP 95.6–98.6; O2SAT 95–99
[2016-09-26] MEDS: DEXT 5%-NACL 0.45% 1000 ML INJ 1,000 ML IV SCH ×2 (02:04→22:55)
[2016-09-26] MEDS: PHENYTOIN INJ 100 MG/2 ML VIAL IVS SCH (04:36)
[2016-09-26] MEDS: IBUPROFEN 600 MG TAB PO SCH ×3 (05:28→21:33)
[2016-09-26] MEDS: SODIUM CHLORIDE 0.9% FLUSH 5 ML FLUSH IVF SCH ×2 (08:14→21:00)
[2016-09-26] MEDS: SERTRALINE HCL 50 MG TAB PO SCH (08:15)
[2016-09-26] MEDS: BACLOFEN 10 MG TAB PO SCH (08:15)
[2016-09-26] MEDS: DIVALPROEX SODIUM E.R. 500 MG TAB PO SCH ×2 (08:16→21:34)
[2016-09-26] MEDS: METOPROLOL TARTRATE 25 MG TAB PO SCH ×2 (08:16→21:00)
[2016-09-26] MEDS: DILTIAZEM HCL 30 MG TAB PO SCH ×4 (08:16→21:00)
[2016-09-26] MEDS: levETIRAcetam 500 MG TAB PO SCH ×2 (08:16→21:32)
[2016-09-26] MEDS: prednisoLONE ACETATE 1% OPHT SUSP 5 ML BTL LEFT EYE SCH ×4 (08:17→21:00)
--- NOTE | 2016-09-26 08:23 | HHI.PR ---
Review/Management Diagnosis/Plan: (1) Seizure Plan: post-traumatic epilepsy low depakote levels. offending meds would include amantadine, baclofen stable eeg reviewed did get depakote last night- documented as not administered- d/w rn recs exam stable since yesterday; responsive and no twitching noticed continue on keppra/dilantin/depakote d/c planning from neurology if dilantin/depakote levels therapeutic (2) Traumatic brain injury Subjective Subjective Comments No acute events reported apparently had a mild sz yesterday- some twitching noticed by pool hall inspector?; given ativan with resolution- No headache No chest pain No dyspnea Active Medications Current Medications Medications (Trade) Dose Ordered Sig/Devan Route Start Time Stop Time Status Last Admin (NS Flush) 2 ml UNSCH PRN IVF 09/23/16 11:45 (NS Flush) 2 ml BID IVF 09/23/16 21:00 09/25/16 21:25 (Zofran Inj) 4 mg Q6H PRN IV 09/23/16 11:45 09/25/16 13:39 (Tylenol) 650 mg Q4H PRN PO 09/23/16 12:00 (Anna-Colace) 1 tab BID PRN PO 09/23/16 12:00 (Cardizem) 30 mg QID PO 09/23/16 13:00 09/25/16 21:39 (Motrin) 600 mg Q8HR PO 09/23/16 14:00 09/26/16 05:28 (Lopressor) 25 mg BID PO 09/23/16 21:00 09/25/16 21:27 (Roxicodone) 5 mg Q4H PRN PO 09/23/16 12:00 09/25/16 03:32 (Tears Naturale Opth Soln) 2 drop Q6HR PRN EACH EYE 09/23/16 12:00 (Pred Forte 1% Opth Susp) 1 drop QID LEFT EYE 09/23/16 13:00 09/25/16 21:32 (Zoloft) 25 mg DAILY PO 09/24/16 09:00 09/25/16 08:17 (Anna-Colace) 1 tab HS PO 09/23/16 21:00 09/25/16 21:39 (Ativan Inj) 2 mg Q10M PRN IV 09/23/16 12:00 09/25/16 15:53 (Dilantin Inj) 150 mg Q8H IVS 09/23/16 21:00 09/26/16 04:36 Metoprolol Tartrate 1.25 mg 1.25 mg Q6H PRN IV PUSH 09/23/16 13:45 09/23/16 16:35 (D5W-1/2 NS 1000 ml Inj) 1,000 ml @ 84 mls/hr [id number] IV 09/23/16 13:45 09/26/16 02:04 (Depakote Er) 500 mg BID PO 09/23/16 21:15 09/25/16 08:16 (Pill Splitter) 1 ea UNSCH PRN OTHER 09/23/16 21:30 (Lioresal) 5 mg Taper BID PO 09/24/16 21:00 09/28/16 20:59 09/25/16 21:29 (Keppra) 750 mg Q12HR PO 09/25/16 09:00 09/25/16 21:32 (Pill Splitter) 1 ea UNSCH PRN OTHER 09/25/16 09:15 Allergies Allergies Coded Allergies *MDRO Multi-Drug Resistant Organism (Verified Adverse Reaction, Unknown, ) Review of Systems All other ROS: ROS reviewed as documented in chart, Unable to obtain Exam I&O / VS 09/25/16 09/25/16 09/26/16 15:00 23:00 07:00 Intake Total 240 ml 480 ml 670 ml Output Total 30 ml Balance 210 ml 480 ml 670 ml Intake Oral 240 ml 480 ml IV Total 670 ml Emesis 30 ml # Voids 2 3 # Bowel Movements 0 Vital Signs Date Time Temp Pulse Resp B/P Pulse Ox O2 Delivery O2 Flow Rate FiO2 09/26/16 07:31 97.8 74 16 106/57 97 09/26/16 04:00 98.6 77 20 118/62 96 09/26/16 00:00 98.4 97 20 134/71 96 09/25/16 22:28 15 09/25/16 20:41 97.1 91 18 131/76 97 09/25/16 16:26 97 119/70 09/25/16 12:24 96.0 83 17 129/73 97 09/25/16 08:27 96.2 96 16 134/72 95 Respiratory: Lungs CTA, Non-labored respirations Cardiology: Normal rate, Regular Rhythm Neurologic: Alert Psychiatric: Cooperative Exam Comments ox 1. dysfluency, follows some simple request, os-blind, left facial weakness, left spastic hemiparesis 1-2/5 Problem Qualifiers (1) Traumatic brain injury: Qualified Code: S06.9X9S - Traumatic brain injury, with loss of consciousness of unspecified duration, sequela Earl Vang MD Sep 26, 2016 08:23
[2016-09-26] MEDS: PHENYTOIN SODIUM 100 MG CAP PO SCH ×3 (09:58→17:19)
[2016-09-26] MEDS: PHENYTOIN SODIUM 30 MG CAP PO SCH ×3 (10:08→17:19)
--- NOTE | 2016-09-26 11:27 | HHI.FPPN ---
Subjective Remarks Patient seen and examined. No acute events overnight however per nurse, no episodes of seizures noted; however he had some "twitching" but he did received a dose of Ativan. Patient complains of back pain this morning and right sided headaches. No other complaints (Dona Collier MD R3) Objective Vitals Vital Signs Date Time Temp Pulse Resp B/P Pulse Ox O2 Delivery O2 Flow Rate FiO2 09/26/16 08:00 97.8 84 16 106/57 97 09/26/16 07:31 97.8 74 16 106/57 97 09/26/16 04:00 98.6 77 20 118/62 96 09/26/16 00:00 98.4 97 20 134/71 96 09/25/16 22:28 15 09/25/16 20:41 97.1 91 18 131/76 97 09/25/16 16:26 97 119/70 09/25/16 12:24 96.0 83 17 129/73 97 I/O 09/25/16 09/25/16 09/25/16 09/26/16 09/26/16 09/26/16 07:00 15:00 23:00 07:00 15:00 23:00 Intake Total 120 ml 240 ml 480 ml 670 ml Output Total 30 ml Balance 120 ml 210 ml 480 ml 670 ml Intake Oral 120 ml 240 ml 480 ml IV Total 670 ml Emesis 30 ml # Voids 2 2 3 # Bowel Movements 0 (Dona Collier MD R3) Result Diagram: 09/24/16 1037 09/24/16 1037 Imaging Skull X-Ray 09/25/16 0000 Signed Impressions: Service Date/Time: September 13:48 - CONCLUSION: The pressure is set to approximately 30 mm of water. Farzad Smith MD Head CT 09/24/16 0000 Signed Impressions: Service Date/Time: Saturday, September 24, 2016 08:33 - CONCLUSION: Prominent ventricles, unchanged in the interval. Akash Boone MD FACR Shunt Study (Imaging) 09/23/16 0000 Signed Impressions: Service Date/Time: Friday, September 23, 2016 10:14 - CONCLUSION: Intact shunt. Shaun Wallace MD Objective Remarks GENERAL: Well developed thin adult white male lying in bed in NAD. More awake this morning. SKIN: No rashes, ecchymoses or lesions. Cool and dry. Multiple tattoos in chest and upper extremities. HEAD: Head with scar from bone flap replacement after craniectomy but only obvious on close examination EYES: Abnormal opaque area central eye on the left but no current ulcer or conjunctival or eyelid problems. Vision grossly intact. ENT: MMM, OP without erythema, tonsillar swelling, or exudate. NECK: Supple, no lymphadenopathy. CARDIOVASCULAR: RRR. Normal S1/S2. No MRG RESPIRATORY: CTAB. No crackles or wheezes. GASTROINTESTINAL: Abdomen soft, non-distended, G-tube removed. Area without evidence of infection. MUSCULOSKELETAL: Extremities without clubbing, cyanosis, or edema. NEUROLOGICAL: Awake, alert and more cooperative this morning. Follows simple commands. (Dona Collier MD R3) A/P Assessment and Plan This is a 20-year-old male past medical history significant for traumatic brain injury admitted for new onset seizures. Clinically stable since admission. No further evidence of seizures. Discharge Planning Anticipate discharge home 1-2 days pending neurology and neurosurgical clearance. d/w Dr. Velazquez (Dona Collier MD R3) Attending Attestation Patient seen and examined. Case reviewed and discussed with the resident team. Agree with plan of care as discussed with me and documented in the resident note. he is a difficult historian and cannot verifiably state if he has had a seizure but no seizures have been observed by staff or his family since the first day he was admitted (Caroline Velazquez MD) Problem List: (1) New onset seizure Status: Acute Plan: Admitted for new onset seizures. Had seizure while obtaining H&P. Status post Ativan 2, Keppra 1g x 1, and Dilantin 1 g x 1 in ED. No seizure activity since admission. CT on 09/23 and 09/24 without acute processes. -Neurology consulted: Dilantin level 38 today, Phenytoin 6.9 * Keppra 750mg BID * Start Dilantin 130mg po TID. Discontinue IV. * Depakote ER 500 mg BID * EEG 09/25: frontal temporal lob showing right-sided PLED at 1Hz in form of spike wave continuously. -Neurosurgery consulted: Repeat CT on 09/24 s/p shunt adjustment stable. No evidence of shunt infection * Cisternogram pending * Follow up CT in 7-10 days -Seizure precautions -Avoid seizure lower threshold meds. Amantadine discontinue and weaning Baclofen. (2) Traumatic brain injury Status: Chronic Plan: History of traumatic brain injury. * Continued home pain medications * Continue metoprolol 25 mg by mouth twice a day * PT/OT. Continue as outpatient. 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 Neurosurgery clinical application consultant recommendations appreciated (4) History of gastrostomy tube placement Status: Resolved Plan: Bedside removal of PEG tube on 09/24 per GI as patient is tolerating po. No evidence of infection around site (5) Nutrition, metabolism, and development symptoms Status: Acute Plan: Diet: Regular as tolerated Fluid: HLIV. Encourage oral fluid hydration Electrolytes: WNL. (Dona Collier MD R3) Problem Qualifiers (1) Traumatic brain injury: Qualified Code: S06.9X9S - Traumatic brain injury, with loss of consciousness of unspecified duration, sequela Dona Collier MD R3 Sep 26, 2016 11:27 Caroline Velazquez MD Sep 26, 2016 14:11
[2016-09-26] MEDS: ONDANSETRON HCL 4 MG/2 ML VIAL IV PRN (12:08)
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
[2016-09-26] MEDS: DOCUSATE SODIUM 50 MG/SENNA 8.6 MG TAB PO SCH (21:33)
[2016-09-27 00:32] VITALS: BP 127/73; PULSE 86; RESP 20; TEMP 96.2; O2SAT 98
[2016-09-27 05:28] VITALS: BP 116/69; PULSE 78
[2016-09-27] MEDS: IBUPROFEN 600 MG TAB PO SCH ×3 (06:25→21:35)
[2016-09-27 08:13] VITALS: BP 121/68; PULSE 77; RESP 18; TEMP 96; O2SAT 98
--- NOTE | 2016-09-27 08:58 | HHI.FPPN ---
Subjective Remarks Patient seen and examined. No acute events overnight per nurse. VSSAF. He denies any complaints this morning. (Dona Collier MD R3) Objective Vitals Vital Signs Date Time Temp Pulse Resp B/P Pulse Ox O2 Delivery O2 Flow Rate FiO2 09/27/16 08:13 96.0 77 18 121/68 98 09/27/16 05:28 78 116/69 09/27/16 00:32 96.2 86 20 127/73 98 09/26/16 21:09 98.0 85 18 106/65 99 09/26/16 16:23 15 09/26/16 16:00 98.2 88 18 115/78 09/26/16 12:00 95.6 75 18 113/69 95 I/O 09/26/16 09/26/16 09/26/16 09/27/16 09/27/16 09/27/16 07:00 15:00 23:00 07:00 15:00 23:00 Intake Total 670 ml 733 ml 200 ml Balance 670 ml 733 ml 200 ml Intake Oral 120 ml 200 ml IV Total 670 ml 613 ml # Voids 2 4 2 # Bowel Movements 0 (Dona Collier MD R3) Result Diagram: 09/24/16 1037 09/24/16 1037 Imaging Last Impressions CSF Shunt Patency Nuclear Medicine 09/26/16 1200 Signed Impressions: Service Date/Time: Monday, September 26, 2016 13:05 - CONCLUSION: Functioning shunt as described above. Akash Boone MD FACR Skull X-Ray 09/25/16 0000 Signed Impressions: Service Date/Time: September 13:48 - CONCLUSION: The pressure is set to approximately 30 mm of water. Farzad Smith MD Head CT 09/24/16 0000 Signed Impressions: Service Date/Time: Saturday, September 24, 2016 08:33 - CONCLUSION: Prominent ventricles, unchanged in the interval. Akash Boone MD FACR Shunt Study (Imaging) 09/23/16 0000 Signed Impressions: Service Date/Time: Friday, September 23, 2016 10:14 - CONCLUSION: Intact shunt. Shaun Wallace MD Objective Remarks GENERAL: Well developed thin adult white male lying in bed in [facility] SKIN: No rashes, ecchymoses or lesions. Cool and dry. Multiple tattoos in chest and upper extremities. HEAD: Head with scar from bone flap replacement after craniectomy but only obvious on close examination EYES: Abnormal opaque area central eye on the left but no current ulcer or conjunctival or eyelid problems. Vision grossly intact. ENT: MMM, OP without erythema, tonsillar swelling, or exudate. NECK: Supple, no lymphadenopathy. CARDIOVASCULAR: RRR. Normal S1/S2. No MRG RESPIRATORY: CTAB. No crackles or wheezes. GASTROINTESTINAL: Abdomen soft, non-distended, G-tube removed. Area without evidence of infection. MUSCULOSKELETAL: Extremities without clubbing, cyanosis, or edema. NEUROLOGICAL: Awake, alert and more cooperative this morning. Follows simple commands. (Dona Collier MD R3) A/P Assessment and Plan This is a 20-year-old male past medical history significant for traumatic brain injury admitted for new onset seizures. Clinically stable since admission. No further evidence of seizures. Discharge Planning Anticipate discharge home 1-2 days pending neurology and neurosurgical clearance. d/w Dr. Velazquez (Dona Collier MD R3) Attending Attestation Patient seen and examined. Case reviewed and discussed with the resident team. Agree with plan of care as discussed with me and documented in the resident note. hope he can go home soon. he takes his meds better with his mother from what she told me. he literally spit out a mouthful of applesauce with his pills mixed in "all over" so it was impossible to calculate what and how much of his medicine was consumed with 2 bites and 1 bite spit out. (Caroline Velazquez MD) Problem List: (1) New onset seizure Status: Acute Plan: Admitted for new onset seizures. Had seizure while obtaining H&P. Status post Ativan 2, Keppra 1g x 1, and Dilantin 1 g x 1 in ED. No seizure activity since admission. CT on 09/23 and 09/24 without acute processes. -Neurology consulted: * Discharge pending therapeutic levels of Dilantin and Depakote. Levels pending this morning. * Keppra 750mg BID * Dilantin 130mg po TID * Depakote ER 500 mg BID * EEG 09/25: frontal temporal lob showing right-sided PLED at 1Hz in form of spike wave continuously. -Neurosurgery consulted: Repeat CT on 09/24 s/p shunt adjustment stable. No evidence of shunt infection * CSF shunt evaluation 09/26: functioning shunt * Follow up CT in 7-10 days -Seizure precautions -Avoid seizure lower threshold meds. Amantadine discontinue and weaning Baclofen. (2) Traumatic brain injury Status: Chronic Plan: History of traumatic brain injury. * Continued home pain medications * Continue metoprolol 25 mg by mouth twice a day * PT/OT. Continue as outpatient. (3) S/P CLEAR COAT SPRAYER shunt Status: Acute Plan: History of CLEAR COAT SPRAYER shunt. Neurosurgery advisor consultant recommendations appreciated; CSF shunt evaluation showed functioning shunt. (4) History of gastrostomy tube placement Status: Resolved Plan: Bedside removal of PEG tube on 09/24 per GI as patient is tolerating po. No evidence of infection around site (5) Nutrition, metabolism, and development symptoms Status: Acute Plan: Diet: Regular as tolerated Fluid: HLIV. Encourage oral fluid hydration Electrolytes: WNL. (Dona Collier MD R3) Dona Collier MD R3 Sep 27, 2016 08:57 Caroline Velazquez MD Sep 27, 2016 12:01
[2016-09-27] MEDS: prednisoLONE ACETATE 1% OPHT SUSP 5 ML BTL LEFT EYE SCH ×4 (09:33→21:34)
[2016-09-27] MEDS: SODIUM CHLORIDE 0.9% FLUSH 5 ML FLUSH IVF SCH ×2 (09:33→21:33)
[2016-09-27] MEDS: levETIRAcetam 500 MG TAB PO SCH ×2 (09:34→21:20)
[2016-09-27] MEDS: BACLOFEN 10 MG TAB PO SCH (09:34)
[2016-09-27] MEDS: PHENYTOIN SODIUM 30 MG CAP PO SCH ×3 (09:34→17:23)
[2016-09-27] MEDS: DIVALPROEX SODIUM E.R. 500 MG TAB PO SCH (09:35)
[2016-09-27] MEDS: METOPROLOL TARTRATE 25 MG TAB PO SCH ×2 (09:36→21:21)
[2016-09-27] MEDS: SERTRALINE HCL 50 MG TAB PO SCH (09:36)
[2016-09-27] MEDS: DILTIAZEM HCL 30 MG TAB PO SCH ×4 (09:36→21:21)
[2016-09-27] MEDS: PHENYTOIN SODIUM 100 MG CAP PO SCH ×3 (09:36→17:23)
[2016-09-27 12:29] VITALS: BP 128/70; PULSE 81; RESP 18; TEMP 96.8; O2SAT 98
[2016-09-27] MEDS: DEXT 5%-NACL 0.45% 1000 ML INJ 1,000 ML IV SCH (13:32)
[2016-09-27 16:00] VITALS: BP 116/77; PULSE 76; RESP 18; TEMP 96.4; O2SAT 98
[2016-09-27 20:46] VITALS: BP 120/64; PULSE 76; RESP 16; TEMP 97.7; O2SAT 95
[2016-09-27] MEDS: DOCUSATE SODIUM 50 MG/SENNA 8.6 MG TAB PO SCH (21:21)
[2016-09-27] MEDS: DIVALPROEX SODIUM E.R. 250 MG TAB PO SCH (21:21)
[2016-09-28] MEDS: DEXT 5%-NACL 0.45% 1000 ML INJ 1,000 ML IV SCH ×2 (00:11→12:55)
[2016-09-28 00:20] VITALS: BP 112/52; PULSE 84; RESP 16; TEMP 98; O2SAT 95
[2016-09-28 05:08] VITALS: BP 125/58; PULSE 85; RESP 16; TEMP 98.2; O2SAT 95
[2016-09-28] MEDS: IBUPROFEN 600 MG TAB PO SCH ×2 (05:09→13:26)
--- NOTE | 2016-09-28 08:44 | HHI.FPPN ---
Subjective Remarks Patient seen and examined. No acute events overnight. Vital signs stable. Afebrile. Patient denies any specific complaints this morning. He has been intermittently combative towards the nurses and staff when they try to give him medications, feed him, or draw his labs. Per discussion with Neelam , patient's nurse, patient has refused to take his medications this morning and last night. He has been spitting some of his medications out after she tries to give it to him. This has happened several times with his previous nurses also. In addition, he refuses to get his labs drawn this morning. However, he is compliant when his mother is around and will take his meds if she gives it to him. (Dona Collier MD R3) Objective Vitals Vital Signs Date Time Temp Pulse Resp B/P Pulse Ox O2 Delivery O2 Flow Rate FiO2 09/28/16 06:00 20 09/28/16 06:00 20 09/28/16 05:08 98.2 85 16 125/58 95 09/28/16 00:20 98.0 84 16 112/52 95 09/27/16 20:46 97.7 76 16 120/64 95 09/27/16 16:00 96.4 76 18 116/77 98 09/27/16 12:29 96.8 81 18 128/70 98 I/O 09/27/16 09/27/16 09/27/16 09/28/16 09/28/16 09/28/16 07:00 15:00 23:00 07:00 15:00 23:00 Intake Total 120 ml 120 ml 120 ml Output Total 150 ml Balance 120 ml 120 ml -30 ml Intake Oral 120 ml 120 ml 120 ml IV Total 0 ml Output Urine Total 150 ml # Voids 5 3 1 (Dona Collier MD R3) Result Diagram: 09/24/16 1037 09/24/16 1037 Imaging CSF Shunt Patency Nuclear Medicine 09/26/16 1200 Signed Impressions: Service Date/Time: Monday, September 26, 2016 13:05 - CONCLUSION: Functioning shunt as described above. Akash Boone MD FACR Skull X-Ray 09/25/16 0000 Signed Impressions: Service Date/Time: September 13:48 - CONCLUSION: The pressure is set to approximately 30 mm of water. Farzad Smith MD Head CT 2/8/17 0000 Signed Impressions: Service Date/Time: Saturday, September 24, 2016 08:33 - CONCLUSION: Prominent ventricles, unchanged in the interval. Akash Boone MD FACR Shunt Study (Imaging) 09/23/16 0000 Signed Impressions: Service Date/Time: Friday, September 23, 2016 10:14 - CONCLUSION: Intact shunt. Shaun Wallace MD Objective Remarks GENERAL: Well developed thin adult white male lying in bed in NAD SKIN: No rashes, ecchymoses or lesions. Cool and dry. Multiple tattoos in chest and upper extremities. HEAD: Head with scar from bone flap replacement after craniectomy but only obvious on close examination EYES: Abnormal opaque area central eye on the left but no current ulcer or conjunctival or eyelid problems. Vision grossly intact. ENT: MMM, OP without erythema, tonsillar swelling, or exudate. NECK: Supple, no lymphadenopathy. CARDIOVASCULAR: RRR. Normal S1/S2. No MRG RESPIRATORY: CTAB. No crackles or wheezes. GASTROINTESTINAL: Abdomen soft, non-distended, G-tube removed. Area without evidence of infection. MUSCULOSKELETAL: Extremities without clubbing, cyanosis, or edema. NEUROLOGICAL: Awake, alert. Follows simple commands. Refusing to have labs drawn. (Dona Collier MD R3) A/P Assessment and Plan This is a 20-year-old male past medical history significant for traumatic brain injury admitted for new onset seizures. Clinically stable since admission. No further evidence of seizures. Discharge Planning Anticipate discharge home today given clinical improvement and clearance from neurology. Will need close follow up with Dr. Guevara within one week. d/w Dr. Velazquez, Dr. Rush, and Ms. Zhangjoaquin (patient's mom) (Dona Collier MD R3) Attending Attestation Patient seen and examined. Case reviewed and discussed with the resident team. Agree with plan of care as discussed with me and documented in the resident note. he does not like being in the hospital and is increasingly acting out by refusing labs and meds so he should do better at home. (Caroline Velazquez MD) Problem List: (1) New onset seizure Status: Acute Plan: Admitted for new onset seizures. Had seizure while obtaining H&P. Status post Ativan 2, Keppra 1g x 1, and Dilantin 1 g x 1 in ED. No seizure activity since admission on 09/23. CT on 09/23 and 09/24 without acute processes. -Neurology consulted: * Discharge pending therapeutic levels of Dilantin and Depakote. However, levels have been consistently low for the past couple of days despite increase in dosage. We suspect that levels are low because he has been refusing to take some of the medications. He intermittently spits out medications when the nurse tries to give it to him. He will however takes his meds when his mom gives them to him. * Discussed situation with Dr. Rush, who's bonderizer for Dr. Vang. Given that patient is clinically stable and no seizure activity since 09/23, he is okay for discharge home with Keppra 750mg BID, Dilantin 130mg po TID, Depakote ER 750 mg BID. He will need close follow up with Dr. Vang as outpatient. * Discussed plan with patient's mom. She agreed with plan and will call the office for an appointment on Thursday. * EEG 09/25: frontal temporal lob showing right-sided PLED at 1Hz in form of spike wave continuously. -Neurosurgery consulted: Repeat CT on 09/24 s/p shunt adjustment stable. No evidence of shunt infection * CSF shunt evaluation 09/26: functioning shunt -Seizure precautions -Avoid seizure lower threshold meds. Amantadine discontinue and weaning Baclofen. (2) Traumatic brain injury Status: Chronic Plan: History of traumatic brain injury. * Continued home pain medications * Continue metoprolol 25 mg by mouth twice a day * PT/OT. Continue as outpatient. (3) S/P HUMAN GEOGRAPHY FACULTY MEMBER shunt Status: Acute Plan: History of HUMAN GEOGRAPHY FACULTY MEMBER shunt. CSF shunt evaluation showed functioning shunt. Follow up with Dr. Laboy as outpatient (4) History of gastrostomy tube placement Status: Resolved Plan: Bedside removal of PEG tube on 09/24 per GI as patient is tolerating po. No evidence of infection around site (5) Nutrition, metabolism, and development symptoms Status: Acute Plan: Diet: Regular as tolerated Fluid: HLIV. Encourage oral fluid hydration Electrolytes: WNL. (Dona Collier MD R3) Dona Collier MD R3 Sep 28, 2016 08:44 Caroline Velazquez MD Sep 29, 2016 12:26
[2016-09-28 08:49] VITALS: BP 123/63; PULSE 80; RESP 18; TEMP 97.5; O2SAT 95
[2016-09-28] MEDS: SODIUM CHLORIDE 0.9% FLUSH 5 ML FLUSH IVF SCH (09:00)
[2016-09-28] MEDS ORDERED: DILA100C PO (09:12)
[2016-09-28] MEDS ORDERED: LEVE500 PO (09:12)
[2016-09-28] MEDS ORDERED: DIVA250ER PO (09:12)
[2016-09-28] MEDS ORDERED: OXYC-392 PO (09:12)
[2016-09-28] MEDS ORDERED: DILA30CA PO (09:12)
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
[2016-09-28] MEDS: DIVALPROEX SODIUM E.R. 250 MG TAB PO SCH (10:26)
[2016-09-28] MEDS: PHENYTOIN SODIUM 30 MG CAP PO SCH ×2 (10:26→13:26)
[2016-09-28] MEDS: PHENYTOIN SODIUM 100 MG CAP PO SCH ×2 (10:26→13:26)
[2016-09-28] MEDS: METOPROLOL TARTRATE 25 MG TAB PO SCH (10:27)
[2016-09-28] MEDS: SERTRALINE HCL 50 MG TAB PO SCH (10:27)
[2016-09-28] MEDS: BACLOFEN 10 MG TAB PO SCH (10:27)
[2016-09-28] MEDS: DILTIAZEM HCL 30 MG TAB PO SCH ×2 (10:27→13:26)
[2016-09-28] MEDS: levETIRAcetam 500 MG TAB PO SCH (10:27)
[2016-09-28] MEDS: prednisoLONE ACETATE 1% OPHT SUSP 5 ML BTL LEFT EYE SCH ×2 (10:36→13:26)
[2016-09-28 13:09] VITALS: BP 126/64; PULSE 82; RESP 18; TEMP 97.9; O2SAT 96
[2016-10-07] MEDS ORDERED: SERO25TA PO (14:32)
[2016-10-07] MEDS ORDERED: SENN8.6C PO (14:32)
[2016-10-07] MEDS ORDERED: [UNRECOGNIZED DRUG - SUPPLY] (14:50)
[2016-10-07] MEDS ORDERED: DILA100C PO (15:21)
[2016-10-07] MEDS ORDERED: PHEN200C3 PO (15:21)
[2016-10-14] MEDS ORDERED: LORA-392 PO (15:13)
[2016-10-14] MEDS ORDERED: QUET5TAB PO (15:15)
[2016-10-20] MEDS ORDERED: OXYC-392 PO (12:06)
[2016-10-22] MEDS ORDERED: DILT30TA PO (10:42)
[2016-10-30] MEDS ORDERED: OXYC-392 PO (12:04)
[2016-10-30] MEDS ORDERED: METO25TA3 PO (12:04)
[2016-10-30] MEDS ORDERED: DILT30TA PO (12:04)
[2016-10-30] MEDS ORDERED: QUET5TAB PO (12:04)
[2016-10-30] MEDS ORDERED: SERT-132 PO (12:05)
[2016-10-30] MEDS ORDERED: LORA-392 PO (12:12)
[2016-10-31] MEDS ORDERED: METO25TA3 PO (10:48)
[2016-11-18] MEDS ORDERED: DIVA250ER PO (13:44)
[2016-12-16] MEDS ORDERED: OXYC-392 PO (16:12)
[2016-12-16] MEDS ORDERED: ADDE20XR PO (16:12)
[2016-12-16] MEDS ORDERED: SERT-129 PO (16:12)
[2016-12-16] MEDS ORDERED: SENN8.6C PO (16:12)
[2016-12-16] MEDS ORDERED: LORA-392 PO (16:14)
[2017-01-15] MEDS ORDERED: [UNRECOGNIZED DRUG - SUPPLY] (15:14)
[2017-01-15] MEDS ORDERED: OXYC-392 PO (15:14)
[2017-01-15] MEDS ORDERED: SERT-129 PO (15:14)
[2017-01-15] MEDS ORDERED: DILA30CA PO (17:24)
[2017-01-15] MEDS ORDERED: CLON0.5T PO (17:24)
[2017-01-15] MEDS ORDERED: DILA100C PO (17:24)
[2017-01-15] MEDS ORDERED: VYVA30CA5 PO (17:24)
[2017-01-15] MEDS ORDERED: SENN8.6C PO (17:24)
== END 2016-09-28 15:27 | disposition home or self-care (01) | DRG 101 ==
LOC: NEPE 08:51 → NEDA 11:34 → NEDH 15:48 → NEDA 16:58 → N05A 18:39 → N05B 09-25 12:17
PROVIDERS: ADMIT Family Medicine; ATTEND Family Medicine
PROC: 0DP6XUZ Removal of Feeding Device from Stomach, External Approach (ICD-10-PCS; principal; 2016-09-24)
DX: G40.409 Other generalized epilepsy and epileptic syndromes, not intractable, without status epilepticus (principal); G91.9 Hydrocephalus, unspecified; G93.89 Other specified disorders of brain; G81.14 Spastic hemiplegia affecting left nondominant side; Z43.1 Encounter for attention to gastrostomy; Z87.820 Personal history of traumatic brain injury; Z98.2 Presence of cerebrospinal fluid drainage device; Z74.01 Bed confinement status; F90.9 Attention-deficit hyperactivity disorder, unspecified type; F31.9 Bipolar disorder, unspecified; F17.290 Nicotine dependence, other tobacco product, uncomplicated; Z91.14 Patient's other noncompliance with medication regimen
CPT/HCPCS: 70250; 70450; 71010; 72040; 74000; 78645; 80048; 80164; 80185; 82550; 83735; 85025; 93005; 95819; 96365; 96375; A9548; J0690; J1165; J1953; J2060; J2405

== ENCOUNTER 2016-10-11 12:46 | Emergency (ER) | payer OTHER ==
[~2016-10-11] VITALS: Ht 172.7 cm; Wt 68.0 kg
[~2016-10-11 12:46] MED LIST changes: -AMAN100C18 PO; -BACL10TA PO; +DILA100C PO; -KEPP10002 PO; +LEVE500 PO; +PHEN200C3 PO; +SENN8.6C PO; +SERO25TA PO
[2016-10-11 12:50] VITALS: BP 119/64; PULSE 93; RESP 16; TEMP 98; O2SAT 98
[2016-10-11 13:05] VITALS: BP 105/59; PULSE 81; RESP 16; O2SAT 96
[2016-10-11 13:29] LABS: AUTOMATED NEUTROPHIL # 5.5 TH/MM3 (1.8-7.7); BASOPHIL % 0.3 % (0.0-2.0); EOSINOPHIL # 0.2 TH/MM3 (0-0.4); EOSINOPHIL % 2.8 % (0.0-4.0); HEMATOCRIT 41.3 % (39.0-51.0); LYMPH % 21.3 % (9.0-44.0); LYMPHOCYTE # 1.8 TH/MM3 (1.0-4.8); MEAN CELL VOLUME 90.2 FL (80.0-100.0); MEAN CORPUSCULAR HEMOGLOBIN 30.3 PG (27.0-34.0); MEAN CORPUSCULAR HGB CONC 33.6 % (32.0-36.0); MONO % 10.9 % (0.0-8.0); NEUT % 64.7 % (16.0-70.0); PLATELET COUNT 255 TH/MM3 (150-450); RED BLOOD COUNT 4.58 MIL/MM3 (4.50-5.90); RED CELL DISTRIBUTION WIDTH 14.2 % (11.6-17.2); WHITE BLOOD COUNT 8.6 TH/MM3 (4.0-11.0)
[2016-10-11 13:30] LABS: HEMO FLAGS AUTO DIFF
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
[2016-10-11 14:07] LABS: ANION GAP 8 MEQ/L (5-15); AST (GOT) 20 U/L (15-37); BICARBONATE 32.3 MEQ/L (21.0-32.0); BLOOD UREA NITROGEN 13 MG/DL (7-18); CHLORIDE 102 MEQ/L (98-107); GLOMERULAR FILTRATION RATE 175 ML/MIN (>89); POTASSIUM 4.8 MEQ/L (3.5-5.1); SODIUM (NA) 142 MEQ/L (136-145)
[2016-10-11 14:10] LABS: ALKALINE PHOSPHATASE 84 U/L (45-117); ALT (GPT) 36 U/L (12-78); TOTAL BILIRUBIN ADULT 0.2 MG/DL (0.2-1.0)
[2016-10-11 14:29] LABS: BANDS 4 % (0-6); CORRECTED NUCLEATED RBC 1 /100 WBC (0-0); EOSINOPHILS 4 % (0-4); METAMYELOCYTES 3 % (0-1); NEUTROPHIL # MANUAL DIFF 5.8 TH/MM3 (1.8-7.7); PLATELET ESTIMATE SMEAR NORMAL (NORMAL); PLATELET MORPHOLOGY NORMAL (NORMAL); POLYS (SEG NEUTROPHILS) 61 % (16-70); SCAN/DIFF FINAL DIFF MANUAL; WBC DIFF SAMPLE 100
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
[2016-10-14] MEDS ORDERED: LORA-392 PO (15:13)
[2016-10-14] MEDS ORDERED: QUET5TAB PO (15:15)
[2016-10-20] MEDS ORDERED: OXYC-392 PO (12:06)
[2016-10-22] MEDS ORDERED: DILT30TA PO (10:42)
[2016-10-30] MEDS ORDERED: OXYC-392 PO (12:04)
[2016-10-30] MEDS ORDERED: QUET5TAB PO (12:04)
[2016-10-30] MEDS ORDERED: METO25TA3 PO (12:04)
[2016-10-30] MEDS ORDERED: DILT30TA PO (12:04)
[2016-10-30] MEDS ORDERED: SERT-132 PO (12:05)
[2016-10-30] MEDS ORDERED: LORA-392 PO (12:12)
[2016-10-31] MEDS ORDERED: METO25TA3 PO (10:48)
[2016-11-18] MEDS ORDERED: DIVA250ER PO (13:44)
[2016-12-16] MEDS ORDERED: ADDE20XR PO (16:12)
[2016-12-16] MEDS ORDERED: SENN8.6C PO (16:12)
[2016-12-16] MEDS ORDERED: OXYC-392 PO (16:12)
[2016-12-16] MEDS ORDERED: SERT-129 PO (16:12)
[2016-12-16] MEDS ORDERED: LORA-392 PO (16:14)
[2017-01-15] MEDS ORDERED: OXYC-392 PO (15:14)
[2017-01-15] MEDS ORDERED: SERT-129 PO (15:14)
[2017-01-15] MEDS ORDERED: [UNRECOGNIZED DRUG - SUPPLY] (15:14)
[2017-01-15] MEDS ORDERED: DILA30CA PO (17:24)
[2017-01-15] MEDS ORDERED: VYVA30CA5 PO (17:24)
[2017-01-15] MEDS ORDERED: CLON0.5T PO (17:24)
[2017-01-15] MEDS ORDERED: SENN8.6C PO (17:24)
[2017-01-15] MEDS ORDERED: DILA100C PO (17:24)
== END 2016-10-11 17:47 | disposition home or self-care (01) ==
LOC: NEPC 12:46
DX: R56.1 Post traumatic seizures (principal); F90.9 Attention-deficit hyperactivity disorder, unspecified type; F31.9 Bipolar disorder, unspecified; Z87.820 Personal history of traumatic brain injury; Z98.2 Presence of cerebrospinal fluid drainage device
CPT/HCPCS: 80053; 80164; 80185; 85007; 85027; 99285

== ENCOUNTER → 2016-10-14 | Outpatient (CLI) | payer OTHER ==
[~2016-10-14] MED LIST changes: +ADDE20XR PO; +CLON0.5T PO; +DILA30CA PO; +QUET5TAB PO; -SENN1TAB2 PO; +SERT-129 PO; +SERT-132 PO; -TRANMIS2; +VYVA30CA5 PO; -[UNRECOGNIZED DRUG - OTHER]; +[UNRECOGNIZED DRUG - SUPPLY]; -[UNRECOGNIZED DRUG - SUPPLY]
--- NOTE | 2016-10-14 13:29 | RADRPT ---
EXAM DATE/TIME: 10/14/2016 12:20 [facility] COMPARISON: CT BRAIN W/O CONTRAST, September 24, 2016, 8:33. 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 RADIATION DOSE: 56.35 CTDIvol (mGy) MEDICAL HISTORY : Head injury SURGICAL HISTORY : Craniotomy. ENCOUNTER: Initial ACUITY: 1 day PAIN SCALE: 0/10 LOCATION: cranial TECHNIQUE: Multiple contiguous axial images were obtained of the head. Using automated exposure control and adj ustment of the mA and/or kV according to patient size, radiation dose was kept as low as reasonably a chievable to obtain optimal diagnostic quality images. FINDINGS: CEREBRUM: Left frontal ventriculostomy catheter again seen with tip across midline in the region of the right b lorna ganglia. Ventricles are again noted be mildly prominent but appear stable. Low density throughou t the right frontal and temporal lobe again seen. The ventricles are normal for age. No evidence of midline shift, mass lesion, hemorrhage or acute infarction. Minimal hemorrhage in the right extra-axi al space again seen but stable. POSTERIOR FOSSA: The cerebellum and brainstem are intact. The 4th ventricle is midline. The cerebellopontine angle i s unremarkable. EXTRACRANIAL: The visualized portion of the orbits is intact. SKULL: Right frontal craniotomy. No evidence of skull fracture. CONCLUSION: 1. Ventricles again noted be prominent. Left frontal ventriculostomy catheter unchanged. 2. Encephalomalacia right frontal temporal lobe again seen. 3. Minimal hemorrhage remains within the extra-axial space on the right stable. Elvis Skinner MD on October 14, 2016 at 13:24 Board Certified Radiologist. This report was verified electronically.
== END ==
LOC: HRAD 11:40
PROVIDERS: ATTEND Neurological Surgery
DX: Z98.2 Presence of cerebrospinal fluid drainage device (principal)
CPT/HCPCS: 70450

== ENCOUNTER → 2016-12-22 | Outpatient (CLI) | payer OTHER ==
[~2016-12-22] MED LIST changes: -SERO25TA PO; -SERT-132 PO; -SERT25TA83 PO
--- NOTE | 2016-12-22 14:51 | RADRPT ---
EXAM DATE/TIME: 12/22/2016 14:06 [facility] COMPARISON: CT BRAIN W/O CONTRAST, October 14, 2016, 12:20. INDICATIONS : Altered mental status, status post shunt adjustment. RADIATION DOSE: 41.05 CTDIvol (mGy) MEDICAL HISTORY : Seizures. subdural hematoma SURGICAL HISTORY : Craniotomy. shunt placement ENCOUNTER: Initial ACUITY: 1 day PAIN SCALE: Non-responsive LOCATION: Bilateral head TECHNIQUE: Multiple contiguous axial images were obtained of the head. Using automated exposure control and adj ustment of the mA and/or kV according to patient size, radiation dose was kept as low as reasonably a chievable to obtain optimal diagnostic quality images. FINDINGS: CEREBRUM: Left frontal ventricle ostomy catheter crosses midline with tip in in the region of the right basal g anglia. Ventricles are stable in size. Encephalomalacia right frontal temporal lobe. High density rem ains within the right frontal extra-axial space unchanged. No evidence of midline shift, mass lesion, new hemorrhage or acute infarction. POSTERIOR FOSSA: The cerebellum and brainstem are intact. The 4th ventricle is midline. The cerebellopontine angle i s unremarkable. EXTRACRANIAL: The visualized portion of the orbits is intact. SKULL: Right-sided craniotomy. CONCLUSION: 1. Left frontal ventriculostomy catheter unchanged. 2. Ventricles are prominent but unchanged. Elvis Skinner MD on December 22, 2016 at 14:47 Board Certified Radiologist. This report was verified electronically.
== END ==
LOC: HRAD 12:32
PROVIDERS: ATTEND Neurological Surgery
DX: S06.9X9A Unspecified intracranial injury with loss of consciousness of unspecified duration, initial encounter (principal); X58.XXXA Exposure to other specified factors, initial encounter; G91.9 Hydrocephalus, unspecified
CPT/HCPCS: 70450

== ENCOUNTER 2017-06-21 02:52 | Emergency (ER) | payer OTHER ==
[~2017-06-21] VITALS: Ht 175.3 cm; Wt 80.0 kg
[~2017-06-21 02:52] MED LIST changes: -ADDE20XR PO; +ADDE30TA PO; +AMPH1TAB83 PO; +CARI1CAP PO; -DILT30TA PO; -DIVA250ER PO; +LAMO100 PO; -LORA-392 PO; -METO25TA3 PO; -PHEN200C3 PO; -POLY99.0 EACH EYE; -PRED1SUS LEFT EYE; +SENN1TAB PO; -SENN8.6C PO; -SERT-129 PO; -VYVA30CA5 PO; +WHEEMIS3; -[UNRECOGNIZED DRUG - SUPPLY]
[2017-06-21 02:53] VITALS: BP 122/85; PULSE 96; RESP 16; TEMP 98.1; O2SAT 97
[2017-06-21] MEDS ORDERED: MULT-207 PO (04:03)
--- NOTE | 2017-06-21 04:35 | RADRPT ---
EXAM DATE/TIME: 06/21/2017 04:20 [facility] COMPARISON: CT BRAIN W/O CONTRAST, December 22, 2016, 14:06. INDICATIONS : Cephalgia with seizure. RADIATION DOSE: 34.84 CTDIvol (mGy) MEDICAL HISTORY : Traumatic brain injury. 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 ENCOUNTER: Initial ACUITY: 1 day PAIN SCALE: 4/10 LOCATION: cranial TECHNIQUE: Multiple contiguous axial images were obtained of the head. Using automated exposure control and adj ustment of the mA and/or kV according to patient size, radiation dose was kept as low as reasonably a chievable to obtain optimal diagnostic quality images. DICOM format image data is available electro nically for review and comparison. FINDINGS: CEREBRUM: Left frontal ventriculostomy catheter unchanged. Ventricles are unchanged with persistent prominence of the right lateral ventricle. Right frontotemporal encephalomalacia unchanged. No evidence of midli ne shift, mass lesion, hemorrhage or acute infarction. No extra-axial fluid collections are seen. POSTERIOR FOSSA: The cerebellum and brainstem are intact. The 4th ventricle is midline. The cerebellopontine angle i s unremarkable. EXTRACRANIAL: The visualized portion of the orbits is intact. SKULL: Postsurgical defect again seen on the right. CONCLUSION: Chronic right-sided encephalomalacia. No acute intracranial findings. Dev Murray MD on June 21, 2017 at 4:30 Board Certified Radiologist. This report was verified electronically.
[2017-06-21] MEDS ORDERED: KETOROLAC TROMETHAMINE 60 MG/2 ML (IM) VIAL IM ONE (05:00)
--- NOTE | 2017-06-21 05:02 | PD ---
HPI Chief Complaint: Abdominal Pain Time Seen by Provider: 03:57 Travel History International Travel<30 days: No Contact w/Intl Traveler<30days: No Traveled to known affect area: No History of Present Illness HPI 21yo M with PMH of traumatic brain injury s/p right partial hemicraniectomy and GIN INSPECTOR shunt placement here with multiple complaints. Pt states he has headache and 2 seizures today. Said pretty much his entire body hurts including chest, abdomen and back. Pt takes oxycodone for pain but it is not working. States he had nausea and vomiting as well. Pt has left sided weakness and denies any new focal weakness or numbness. States he had fever since he felt warm. PFSH Past Medical History ADD: Yes ADHD: Yes Bipolar Disorder: Yes Weight (Kg): 3 Cancer: No Cardiovascular Problems: No Diabetes: No Diminished Hearing: No Endocrine: No Genitourinary: No Headaches: Yes Immune Disorder: No Musculoskeletal: No Neurologic: Yes (traumatic brain injury S/P CARE HOME) Psychiatric: Yes ("ANGER CONTROL") Reproductive: No Respiratory: No Immunizations Current: Yes Migraines: No Seizures: Yes Thyroid Disease: No Ulcer: No Past Surgical History Abdominal Surgery: No AICD: No Appendectomy: No Arteriovenous Shunt: No Cardiac Surgery: No Section: No Cholecystectomy: No Ear Surgery: No Endocrine Surgery: No Eye Surgery: No Genitourinary Surgery: No Gynecologic Surgery: No Insulin Pump: No Joint Replacement: No Neurologic Surgery: Yes (subdural hematoma evac., GIN INSPECTOR SHUNT (07/02)) Oral Surgery: No Pacemaker: No Thoracic Surgery: No Other Surgery: Yes Social History Alcohol Use: Yes (OCC) Tobacco Use: Yes (1/2 PPD) Substance Use: No Allergies-Medications (Allergen,Severity, Reaction): Coded Allergies: *MDRO Multi-Drug Resistant Organism (Verified Adverse Reaction, Unknown, 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) Reported Meds & Prescriptions Reported Meds & Active Scripts Active Oxycodone (Oxycodone HCl) 5 Mg Tab 1 Tab PO BID PRN Wheelchair (Device) 1 Mis Mis Ea .ROUTE DIRECTED Rx for collapsable wheelchair for ease of transfers Lamictal (Lamotrigine) 100 Mg Tab 300 Mg PO HS Clonazepam 0.5 Mg Tab 1 Mg PO BID Keppra (Levetiracetam) 500 Mg Tab 750 Mg PO Q12HR Ibuprofen 600 Mg Tab 600 Mg PO Q8HR Commode With Arms (Device) 1 Mis Mis 1 Ea .ROUTE DIRECTED Hospital Bed - Electric 1 Ea Ea 1 Ea .ROUTE DIRECTED Reported One Daily (Multiple Vitamin) 1 Tab 1 Tab PO DAILY Quetiapine (Quetiapine Fumarate) 50 Mg Tab 50 Mg PO HS [place] (Amphetamine Sulfate) 10 Mg Tab 10 Mg PO DAILY 1st dose on awakening; additional doses at intervals of 4-6 hrs. Avoid late evening. If treating exogenous obesity, take 30-60 min before meals. Adderall (Amphetamine-Dextroamphetamine) 30 Mg Tab 30 Mg PO DAILY Avoid late evening doses. Space doses at least 4 to 6 hours if more than once/day dosing. Dilantin (Phenytoin Extended) 100 Mg Cap 100 Mg PO TID Dilantin (Phenytoin Extended) 30 Mg Cap 30 Mg PO TID Review of Systems Except as stated in HPI: all other systems reviewed are Neg Physical Exam Narrative GENERAL: 21yo M not in distress. SKIN: Focused skin assessment warm/dry. HEAD: Atraumatic. Normocephalic. EYES: Pupils reactive. 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 ENT: No nasal bleeding or discharge. Mucous membranes pink and moist. NECK: Trachea midline. No JVD. CARDIOVASCULAR: Regular rate and rhythm. No murmur appreciated. RESPIRATORY: No accessory muscle use. Clear to auscultation. Breath sounds equal bilaterally. GASTROINTESTINAL: Abdomen soft, non-tender, nondistended. MUSCULOSKELETAL: No obvious deformities. No clubbing. No cyanosis. No edema. NEUROLOGICAL: Awake and alert. No obvious cranial nerve deficits. Left lower extremity 4/5. Speech is at baseline. Data Data Last Documented VS Vital Signs Date Time Temp Pulse Resp B/P (MAP) Pulse Ox O2 Delivery O2 Flow Rate FiO2 06/21/17 05:25 06/21/17 02:53 98.1 96 16 97 Room Air Orders Orders Ct Brain W/O Iv Contrast(Rout) (06/21/17 ) Ketorolac Inj (Toradol Inj) (06/21/17 05:00) MDM Medical Decision Making Medical Screen Exam Complete: Yes Emergency Medical Condition: Yes Differential Diagnosis ICH vs. meningitis vs. GIN INSPECTOR shunt malfunction with hydrocephalus Narrative Course 21yo M here with c/o headache and 2 seizures today. Pt is verbally abusive to staff including the nurse and myself. He is refusing blood work and just wants pain medication. His friend persuade him to at least do the CT brain. CT brain showed chronic right encephalomalacia. No acute intracranial findings. Pt given toradol IM for pain. I explained to patient that I have not completed the full work up including asking the neurosurgeon to evaluate and collect CSF from the GIN INSPECTOR shunt to check for infection since he said he had a fever, headache , and seizure. I also need to check labs including dilantin level and electrolytes to find out why he had seizure. Pt said God will help him and is leaving against medical advice. AMA: The risks of leaving against medical advice without further evaluation treatment were discussed with the patient. These risks include cardiac dysfunction, cardiac dysrhythmia, possible heart attack, possible stroke or . The patient indicated understanding of these risks and appeared to have the capacity to make this decision. Diagnosis Primary Impression: Headache Qualified Codes: R51 - Headache Patient Instructions: General Instructions Departure Forms: Tests/Procedures Additional Instructions: Please follow up with your doctor or return if you change your mind. Med/Other Pt SpecificInfo: No Change to Meds Disposition: 07 AGAINST MEDICAL ADVICE Condition: Stable mEmy Toth DO Jun 21, 2017 05:02
== END 2017-06-21 05:28 | disposition left against medical advice (07) ==
LOC: NEPE 02:52
DX: R51 Headache (principal); R11.2 Nausea with vomiting, unspecified; M62.81 Muscle weakness (generalized); R56.9 Unspecified convulsions; F90.9 Attention-deficit hyperactivity disorder, unspecified type; F31.9 Bipolar disorder, unspecified; F17.200 Nicotine dependence, unspecified, uncomplicated; Z87.820 Personal history of traumatic brain injury; Z79.899 Other long term (current) drug therapy
CPT/HCPCS: 70450

== ENCOUNTER 2017-08-12 22:26 | Inpatient (IN) | payer OTHER ==
[~2017-08-12] VITALS: Ht 175.3 cm; Wt 64.3 kg
[~2017-08-12 22:26] MED LIST changes: -CARI1CAP PO; +MULT-207 PO; -SENN1TAB PO
[2017-08-12 22:30] VITALS: BP 118/85; PULSE 101; RESP 20; O2SAT 96
[2017-08-12] MEDS ORDERED: ZIPRASIDONE MESYLATE 20 MG VIAL IM PRN (22:45)
[2017-08-12] MEDS ORDERED: diphenhydrAMINE HCL 50 MG/ML VIAL IM ONE (22:45)
[2017-08-12] MEDS ORDERED: LORazepam 2 MG/ML VIAL IV PUSH ONE (22:45)
--- NOTE | 2017-08-12 22:52 | PD ---
HPI Chief Complaint: Psychiatric Symptoms Time Seen by Provider: 22:39 Travel History International Travel<30 days: No Contact w/Intl Traveler<30days: No Traveled to known affect area: No History of Present Illness HPI Patient 21-year-old male prior traumatic brain injury, EMS in his trailer house with his mother and 2 sisters apparently agitated and threatening hurt himself he had self inflicted injury in his upper L arm according to paramedics and when they told him that he was going to be [place] acted he punched a mirror grabbed a shard of glass and made a threatening gesture towards the police and paramedics apparently.. Family also my have had a firearm and police also were reported to have drawn weapons to secure situation , because of the serious threat he was making towards paramedics .. Paramedics had to duck out of the way and then it was resolved without any discharge of firearms . In the process the patient with TBI cut his mothers hand (significantly enough that she needed sutures in the ER ) then patient took the chard he then cut himself one more time in his chest area. He comes in very agitated and I get a call from the paramedics en route to need to sedate him 2 mg IM of Ativan are given with minimal effect ,, he still needs the police to restrain him with the paramedics in the ER ...patient is uncooperative non-redirectable he needs to be put into restraints and then chemically restrained with Geodon 20 IM and Benadryl 50 IM and 2 mg IV of Ativan on top of the 2 IM he received in route. to protect himself and staff from his aggression. Pt talking nonsense psychotic like jibberish then few clear statements btw his bizarre talk. PFSH Past Medical History ADD: Yes ADHD: Yes Bipolar Disorder: Yes Weight (Kg): 3 Cancer: No Cardiovascular Problems: No Diabetes: No Diminished Hearing: No Endocrine: No Genitourinary: No Headaches: Yes Immune Disorder: No Musculoskeletal: No Neurologic: Yes (traumatic brain injury S/P ALF) Psychiatric: Yes ("ANGER CONTROL") Reproductive: No Respiratory: No Immunizations Current: Yes Migraines: No Seizures: Yes Thyroid Disease: No Ulcer: No Past Surgical History Abdominal Surgery: No AICD: No Appendectomy: No Arteriovenous Shunt: No Cardiac Surgery: No Section: No Cholecystectomy: No Ear Surgery: No Endocrine Surgery: No Eye Surgery: No Genitourinary Surgery: No Gynecologic Surgery: No Insulin Pump: No Joint Replacement: No Neurologic Surgery: Yes (subdural hematoma evac., 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)) Oral Surgery: No Pacemaker: No Thoracic Surgery: No Other Surgery: Yes Social History Alcohol Use: Yes (OCC) Tobacco Use: Yes (/2 PPD) Substance Use: No Allergies-Medications (Allergen,Severity, Reaction): Coded Allergies: *MDRO Multi-Drug Resistant Organism (Verified Adverse Reaction, Unknown, 08/12/17) 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 SKIN: Warm and dry.lac to left shoulder and scratches to chest upper HEAD: Atraumatic. Normocephalic. EYES: Pupils equal and round. No scleral icterus. No injection or drainage. wild -eyed stare EOMI ENT: No nasal bleeding or discharge. Mucous membranes pink and moist. NECK: Trachea midline. No JVD. CARDIOVASCULAR: Regular rate and rhythm. RESPIRATORY: No accessory muscle use. Clear to auscultation. Breath sounds equal bilaterally. GASTROINTESTINAL: Abdomen soft, non-tender, nondistended. Hepatic and splenic margins not palpable. MUSCULOSKELETAL: Extremities [place] as above without clubbing, cyanosis, or edema. No obvious deformities. NEUROLOGICAL: Awake and alert. No obvious cranial nerve deficits. Motor grossly within normal limits. Five out of 5 muscle strength in the arms and legs. PSYCHIATRIC: agitated and bizarre affect and thought processl. Data Data Last Documented VS Vital Signs Date Time Temp Pulse Resp B/P (MAP) Pulse Ox O2 Delivery O2 Flow Rate FiO2 08/13/17 14:24 67 15 116/69 (85) 98 Room Air Orders Orders Ziprasidone Inj (Geodon Inj) (08/12/17 22:45) Diphenhydramine Inj (Benadryl Inj) (08/12/17 22:45) Lorazepam Inj (Ativan Inj) (08/12/17 22:45) Ketamine Inj (Ketalar Inj) (08/12/17 23:15) Restraint, Limb Graves Adult (08/12/17 23:34) Restraints Non-Violent NABOR.Q3H (08/12/17 23:56) Tetanus/Diphtheria Tox Adult (Tetanus/Di (08/13/17 02:15) Complete Blood Count With Diff (08/13/17 03:53) Comprehensive Metabolic Panel (08/13/17 03:53) Psych Screen (08/13/17 03:53) Drug Screen, Random Urine (08/13/17 03:53) Alcohol (Ethanol) (08/13/17 03:53) Ziprasidone Inj (Geodon Inj) (08/13/17 07:00) Diphenhydramine Inj (Benadryl Inj) (08/13/17 07:00) Admit Order (Ed Use Only) (08/13/17 ) Admit To Inpatient Psych (08/13/17 ) Code Status (08/13/17 16:57) Vital Signs (Adult) NABOR.Q12H.E (08/13/17 16:57) Activity Oob Ad Zabrina (08/13/17 16:57) Level Of Observation (Psych) (08/13/17 16:57) Acetaminophen (Tylenol) (08/13/17 17:00) Magnesium Hydroxide Liq (Milk Of Magnesi (08/13/17 17:00) Al-Mag Hy-Si 40-40-4 Mg/Ml Liq (Mag-Al P (08/13/17 17:00) Nicotine 21 Mg Patch.24 Hr (Habitrol 21 (08/14/17 09:00) Basic Metabolic Panel (Bmp) (08/14/17 06:00) Thyroid Stimulating Hormone (08/14/17 06:00) Lipid Profile (08/14/17 06:00) Hemoglobin (Hgb) A1c (08/14/17 06:00) Remove Old Patch (08/14/17 09:00) Labs Laboratory Tests Test 12/28/17 04:00 White Blood Count 9.4 TH/MM3 Red Blood Count 5.34 MIL/MM3 Hemoglobin 16.9 GM/DL Hematocrit 49.4 % Mean Corpuscular Volume 92.5 FL Mean Corpuscular Hemoglobin 31.7 PG Mean Corpuscular Hemoglobin Concent 34.2 % Red Cell Distribution Width 13.8 % Platelet Count 283 TH/MM3 Mean Platelet Volume 8.6 FL Neutrophils (%) (Auto) 66.6 % Lymphocytes (%) (Auto) 22.3 % Monocytes (%) (Auto) 9.6 % Eosinophils (%) (Auto) 1.3 % Basophils (%) (Auto) 0.2 % Neutrophils # (Auto) 6.3 TH/MM3 Lymphocytes # (Auto) 2.1 TH/MM3 Monocytes # (Auto) 0.9 TH/MM3 Eosinophils # (Auto) 0.1 TH/MM3 Basophils # (Auto) 0.0 TH/MM3 CBC Comment DIFF FINAL Differential Comment Blood Urea Nitrogen 7 MG/DL Creatinine 0.75 MG/DL Random Glucose 83 MG/DL Total Protein 7.5 GM/DL Albumin 3.9 GM/DL Calcium Level 9.3 MG/DL Alkaline Phosphatase 111 U/L Aspartate Amino Transf (AST/SGOT) 18 U/L Alanine Aminotransferase (ALT/SGPT) 25 U/L Total Bilirubin 0.5 MG/DL Sodium Level 141 MEQ/L Potassium Level 4.0 MEQ/L Chloride Level 107 MEQ/L Carbon Dioxide Level 26.5 MEQ/L Anion Gap 8 MEQ/L Estimat Glomerular Filtration Rate 129 ML/MIN Ethyl Alcohol Level LESS THAN 3 MG/DL MDM Medical Decision Making Medical Screen Exam Complete: Yes Emergency Medical Condition: Yes Differential Diagnosis TBI baseline with agitation due to substance abuse vs psychotic process , organic brain process and scizoaffective disorder possible. agitation self mutilative behavior , SI, HI , other Narrative Course pt is given multiple meds to sedate him and he continues awake , He sleeps only for a few hours and then is calmer but still easy to agitation . , Geodom 10 MG additional given just prior to sign out as shift changes and pt needs to be resedated for placement in [facility] gardner takes sign out to await psych bed Diagnosis Primary Impression: Agitation Additional Impressions: Aggressive behavior of adult Self-mutilation Scripts Quetiapine (Seroquel) 50 Mg Tab 150 MG PO BID for Mental Health for 15 Days, #90 TAB 1 Refill Prov: Brady Zavala MD 08/17/17 Danny Gan MD Aug 12, 2017 22:52
[2017-08-12] MEDS ORDERED: KETAMINE HCL 500 MG/5 ML VIAL IV PUSH ONE (23:15)
[2017-08-13] MEDS ORDERED: TETANUS/DIPHTHERIA TOXOID ADULT 0.5 ML VIAL IM ONE (02:15)
[2017-08-13 04:16] LABS: AUTOMATED NEUTROPHIL # 6.3 TH/MM3 (1.8-7.7); BASOPHIL % 0.2 % (0.0-2.0); EOSINOPHIL # 0.1 TH/MM3 (0-0.4); EOSINOPHIL % 1.3 % (0.0-4.0); HEMATOCRIT 49.4 % (39.0-51.0); HEMOGLOBIN 16.9 GM/DL (13.0-17.0); LYMPH % 22.3 % (9.0-44.0); LYMPHOCYTE # 2.1 TH/MM3 (1.0-4.8); MEAN CELL VOLUME 92.5 FL (80.0-100.0); MEAN CORPUSCULAR HEMOGLOBIN 31.7 PG (27.0-34.0); MEAN CORPUSCULAR HGB CONC 34.2 % (32.0-36.0); MEAN PLATELET VOLUME 8.6 FL (7.0-11.0); MONO % 9.6 % (0.0-8.0); MONOCYTE # 0.9 TH/MM3 (0-0.9); NEUT % 66.6 % (16.0-70.0); PLATELET COUNT 283 TH/MM3 (150-450); RED BLOOD COUNT 5.34 MIL/MM3 (4.50-5.90); RED CELL DISTRIBUTION WIDTH 13.8 % (11.6-17.2); WHITE BLOOD COUNT 9.4 TH/MM3 (4.0-11.0)
[2017-08-13 04:37] LABS: ALT (GPT) 25 U/L (12-78)
[2017-08-13 04:40] LABS: ALKALINE PHOSPHATASE 111 U/L (45-117); TOTAL BILIRUBIN ADULT 0.5 MG/DL (0.2-1.0); TOTAL PROTEIN 7.5 GM/DL (6.4-8.2)
[2017-08-13 04:49] LABS: ALBUMIN 3.9 GM/DL (3.4-5.0); AST (GOT) 18 U/L (15-37); BICARBONATE 26.5 MEQ/L (21.0-32.0); BLOOD UREA NITROGEN 7 MG/DL (7-18); CALCIUM 9.3 MG/DL (8.5-10.1); CHLORIDE 107 MEQ/L (98-107); CREATININE 0.75 MG/DL (0.60-1.30); GLOMERULAR FILTRATION RATE 129 ML/MIN (>89); GLUCOSE,RANDOM 83 MG/DL (74-106); SODIUM (NA) 141 MEQ/L (136-145)
[2017-08-13] MEDS ORDERED: diphenhydrAMINE HCL 50 MG/ML VIAL IM ONE (07:00)
[2017-08-13] MEDS ORDERED: ZIPRASIDONE MESYLATE 20 MG VIAL IM PRN (07:00)
[2017-08-13 07:41] VITALS: BP 115/56; PULSE 80; RESP 15; O2SAT 99
[2017-08-13 09:45] VITALS: BP 115/68; PULSE 87; RESP 15; O2SAT 98
[2017-08-13 14:24] VITALS: BP 116/69; PULSE 67; RESP 15; O2SAT 98
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
[2017-08-13] MEDS ORDERED: ACETAMINOPHEN 325 MG TAB PO PRN (17:00)
[2017-08-13] MEDS ORDERED: ALUMINUM/MAGNESIUM/SIMETH 30 ML CUP PO PRN (17:00)
[2017-08-13] MEDS ORDERED: MAGNESIUM HYDROXIDE SUSP 30 ML CUP PO PRN (17:00)
[2017-08-13 18:22] VITALS: BP 122/64; PULSE 81; RESP 18; TEMP 97.7; O2SAT 99
[2017-08-13] MEDS ORDERED: LORazepam 2 MG/ML VIAL ONE (19:56)
[2017-08-13] MEDS ORDERED: HALOPERIDOL LACTATE 5 MG/ML AMP ONE (19:57)
[2017-08-13] MEDS ORDERED: HALOPERIDOL LACTATE 5 MG/ML AMP IM ONE (20:30)
[2017-08-13] MEDS ORDERED: LORazepam 2 MG/ML VIAL IM ONE (20:30)
[2017-08-13] MEDS: levETIRAcetam 250 MG TAB PO SCH (21:00)
[2017-08-13] MEDS: lamoTRIgine 100 MG TAB PO SCH (21:00)
[2017-08-13] MEDS: PHENYTOIN SODIUM 30 MG CAP PO SCH (22:00)
[2017-08-13] MEDS: PHENYTOIN SODIUM 100 MG CAP PO SCH (22:00)
[2017-08-13] MEDS: IBUPROFEN 600 MG TAB PO SCH (22:00)
[2017-08-14] MEDS: IBUPROFEN 600 MG TAB PO SCH ×3 (05:49→20:45)
[2017-08-14 06:23] VITALS: BP 120/70; PULSE 87; RESP 16; TEMP 97.8; O2SAT 97
[2017-08-14] MEDS: NICOTINE 21 MG/24 HR PATCH T-DERMAL SCH ×2 (09:00→09:31)
[2017-08-14] MEDS: REMOVE OLD PATCH T-DERMAL SCH (09:00)
[2017-08-14] MEDS: PHENYTOIN SODIUM 30 MG CAP PO SCH ×3 (09:28→17:46)
[2017-08-14] MEDS: PHENYTOIN SODIUM 100 MG CAP PO SCH ×3 (09:29→17:45)
[2017-08-14] MEDS: levETIRAcetam 250 MG TAB PO SCH (09:29)
[2017-08-14 10:39] LABS: BICARBONATE 23.2 MEQ/L (21.0-32.0); BLOOD UREA NITROGEN 15 MG/DL (7-18); CALCIUM 9.8 MG/DL (8.5-10.1); CHLORIDE 106 MEQ/L (98-107); CHOLESTEROL 150 MG/DL (120-200); CREATININE 0.69 MG/DL (0.60-1.30); GLOMERULAR FILTRATION RATE 142 ML/MIN (>89); GLUCOSE,RANDOM 101 MG/DL (74-106); SODIUM (NA) 142 MEQ/L (136-145); TRIGLYCERIDES 95 MG/DL (42-150)
[2017-08-14 10:48] LABS: HDL CHOLESTEROL 78.8 MG/DL (40.0-60.0); LDL CHOLESTEROL 52 MG/DL (0-99)
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
[2017-08-14 11:48] LABS: BLOOD, URINE NEG (NEG); GLUCOSE,URINE NEG (NEG); KETONE, URINE 150 mg/dL (NEG); MUCUS URINE FEW /lpf (OCC); NITRITE,URINE NEG (NEG); URINE COLOR YELLOW (YELLW/STRAW); URINE LEUKOCYTE ESTERASE NEG (NEG)
[2017-08-14] MEDS ORDERED: OXYC1TAB63 PO (11:49)
[2017-08-14] MEDS ORDERED: ADDE30TA PO (11:49)
[2017-08-14] MEDS ORDERED: DIAZ10TA PO (11:49)
[2017-08-14] MEDS ORDERED: KEPP750T PO (11:49)
[2017-08-14] MEDS ORDERED: LAMO150T PO (11:49)
[2017-08-14] MEDS ORDERED: CLON0.5T PO (11:49)
[2017-08-14] MEDS ORDERED: PHEN100C PO (11:49)
[2017-08-14] MEDS ORDERED: ADDE10 PO (11:49)
[2017-08-14] MEDS ORDERED: SERO50TA PO (11:49)
[2017-08-14] MEDS ORDERED: DILA30CA PO (11:49)
[2017-08-14 11:50] LABS: BILIRUBIN, URINE NEG (NEG)
[2017-08-14] MEDS ORDERED: DIAZEPAM 10 MG TAB PO PRN (12:15)
[2017-08-14] MEDS ORDERED: LORazepam 1 MG TAB PO PRN (12:45)
[2017-08-14] MEDS ORDERED: FLUMAZENIL 0.5 MG/5 ML VIAL IV PUSH PRN (12:45)
[2017-08-14] MEDS ORDERED: LORazepam 2 MG/ML VIAL IV PUSH PRN ×4 (12:45)
[2017-08-14] MEDS ORDERED: LORazepam 2 MG TAB PO PRN (12:45)
--- NOTE | 2017-08-14 15:17 | PD.TTN ---
Patient Problems 1. Discharge planning 2. Medication compliance 3. Knowledge deficit 4. Lack of coping skills Progress Toward Goals Provider Present: Dr. Hardeep Zavala Provider Input: Pt is new to the unit and will be evaluated along with medication regiment. Nurse(s) Present: Gladys De RN Nurse(s) Input: Pt is new and will continue to be monitored and evaluated on unit. Psychiatric Counselors Present: RUCHI Kate Psych Therapist Input: Pt will be assessed using biopsychosocial assessment as he is new. Group Spec/RT/OT/JIMENEZ Present: TONY Busch Group Spec/RT/OT/JIMENEZ Input: Pt is new to the unit and will be assessed. Discharge Plan [facility] Pt will return to his mother's home after discharge and will continue to follow up with [facility]. Documentation Scribe: RUCHI Kate Jonathan LMHC Aug 14, 2017 15:17
[2017-08-14 15:27] LABS: HEMOGLOBIN A1C 4.9 % (4.3-6.0)
[2017-08-14] MEDS: clonazePAM 0.5 MG TAB PO SCH ×2 (16:34→17:46)
[2017-08-14] MEDS: THIAMINE HCL 100 MG TAB PO SCH (16:35)
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
[2017-08-14 18:02] VITALS: BP 118/66; PULSE 97; RESP 18; TEMP 98.1; O2SAT 98
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
[2017-08-14] MEDS: lamoTRIgine 100 MG TAB PO SCH (20:45)
[2017-08-14] MEDS: QUEtiapine FUMARATE 25 MG TAB PO SCH (20:46)
[2017-08-15 05:40] VITALS: BP 117/65; PULSE 71; RESP 17; TEMP 97.2; O2SAT 97
[2017-08-15] MEDS: IBUPROFEN 600 MG TAB PO SCH ×3 (05:59→21:40)
[2017-08-15] MEDS: PHENYTOIN SODIUM 100 MG CAP PO SCH ×3 (08:09→16:35)
[2017-08-15] MEDS: THIAMINE HCL 100 MG TAB PO SCH (08:09)
[2017-08-15] MEDS: FOLIC ACID 1 MG TAB PO SCH (08:10)
[2017-08-15] MEDS: MULTIVITAMIN TAB PO SCH (08:10)
[2017-08-15] MEDS: clonazePAM 0.5 MG TAB PO SCH ×3 (08:10→16:36)
[2017-08-15] MEDS: PHENYTOIN SODIUM 30 MG CAP PO SCH ×3 (08:11→16:35)
[2017-08-15] MEDS: QUEtiapine FUMARATE 25 MG TAB PO SCH ×2 (08:11→21:39)
--- NOTE | 2017-08-15 08:43 | PD.CONS ---
HPI Service [facility] Consult Requested By Psych Reason for Consult Elevation of CK Primary Care Physician Unknown Diagnoses: History of Present Illness 21M who is admitted to our psychiatric unit under [place] Act for disruptive behavior related to antisocial personality disorder with brief psychotic episode. He is not in pain and denies any sore muscles. On further questioning it seems he worked out and did over 80 sit ups not long before his labwork that showed elevated CK. He says it was a very good work out and he really "felt the burn". He denies any tremors or involuntary muscle movements, denies seizures, denies chest pain. Review of Systems Constitutional: DENIES: Diaphoretic episodes, Fatigue, Fever, Weight gain, Weight loss Eyes: DENIES: Diplopia, Vision loss Ears, nose, mouth, throat: DENIES: Hearing loss Respiratory: DENIES: Cough, Wheezing Cardiovascular: DENIES: Chest pain, Palpitations, Syncope Gastrointestinal: DENIES: Abdominal pain, Diarrhea, Nausea Musculoskeletal: DENIES: Joint pain, Muscle aches, Stiffness, Back pain Hematologic/lymphatic: DENIES: Bruising Neurologic: DENIES: Abnormal gait, Headache, Localized weakness, Paresthesias, Seizures, Tremor, Poor Balance Psychiatric: COMPLAINS OF: Mood changes, DENIES: Anxiety, Confusion Past Family Social History Allergies: Coded Allergies: *MDRO Multi-Drug Resistant Organism (Verified Adverse Reaction, Unknown, 08/12/17) 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 Cool and dry. HEAD: Atraumatic. Normocephalic. No temporal or scalp tenderness. EYES: Pupils equal round and reactive. Extraocular motions intact. No scleral icterus. No injection or drainage. ENT: Nose without bleeding, purulent drainage or septal hematoma. Throat without erythema, tonsillar hypertrophy or exudate. Uvula midline. Airway patent. NECK: Trachea midline. No JVD or lymphadenopathy. Supple, nontender, no meningeal signs. CARDIOVASCULAR: Regular rate and rhythm without murmurs, gallops, or rubs. RESPIRATORY: Clear to auscultation. Breath sounds equal bilaterally. No wheezes , rales, or rhonchi. GASTROINTESTINAL: Abdomen soft, non-tender, nondistended. No hepato-splenomegaly , or palpable masses. No guarding. MUSCULOSKELETAL: Extremities without clubbing, cyanosis, or edema. There is a splint on 3 lateral fingers of his left hand. NEUROLOGICAL: Awake and alert. Cranial nerves II through XII intact. Right ear hearing deficit. Motor and sensory grossly within normal limits. Five out of 5 muscle strength in all muscle groups. Normal speech. Laboratory Laboratory Tests Test 08/14/17 09:29 08/14/17 11:15 08/14/17 19:17 Blood Urea Nitrogen 15 Creatinine 0.69 Random Glucose 101 Calcium Level 9.8 Sodium Level 142 Potassium Level 3.7 Chloride Level 106 Carbon Dioxide Level 23.2 Anion Gap 13 Estimat Glomerular Filtration Rate 142 Hemoglobin A1c 4.9 Total Creatine Kinase 1060 Creatine Kinase MB 8.2 Creatine Kinase MB % 0.8 Triglycerides Level 95 Cholesterol Level 150 LDL Cholesterol 52 HDL Cholesterol 78.8 Cholesterol/HDL Ratio 1.90 Thyroid Stimulating Hormone 3rd Gen 1.180 Urine Color YELLOW Urine Turbidity CLEAR Urine pH 6.0 Urine Specific [place] 1.031 Urine Protein 30 Urine Glucose (UA) NEG Urine Ketones 150 Urine Occult Blood NEG Urine Nitrite NEG Urine Bilirubin NEG Urine Urobilinogen 2.0 Urine Leukocyte Esterase NEG Urine RBC 23 Urine WBC 3 Urine Mucus FEW Microscopic Urinalysis Comment CULT NOT INDICATED Urine Opiates Screen NEG Urine Barbiturates Screen NEG Urine Amphetamines Screen NEG Urine Benzodiazepines Screen NEG Urine Cocaine Screen NEG Urine Cannabinoids Screen POS Phenytoin (Dilantin) Level 5.3 Result Diagram: 08/13/17 0400 08/14/17 0929 Assessment and Plan Problem List: (1) Elevated CK ICD Code: R74.8 - Abnormal levels of other serum enzymes Assessment and Plan Elevation of CK Likely related to exercise workout prior to labwork He says he feels fine and refuses further labs Encourage generous PO fluids Discharge Planning Without follow up labs (he refused) I cannot watch the CK trend, but it is likely benign and transient given history of exercising prior to labs Cleared for discharge medically Ben Matt MD Aug 15, 2017 08:43
[2017-08-15] MEDS: NICOTINE 21 MG/24 HR PATCH T-DERMAL SCH (09:00)
[2017-08-15] MEDS: REMOVE OLD PATCH T-DERMAL SCH (09:00)
[2017-08-15 10:04] LABS: BICARBONATE 30.3 MEQ/L (21.0-32.0); CALCIUM 9.5 MG/DL (8.5-10.1); CREATININE 0.88 MG/DL (0.60-1.30)
--- NOTE | 2017-08-15 13:16 | HHI.PYPN ---
Subjective Chief Complaint: "I don't know." Remarks Pt seen and discussed with staff. He has been compliant with medications and denies SI/HI. Yesterday he was agitated and cursing at staff. Today he has been calm and more cooperative. He is tearful during interview stating that he is in detention. Mental Status Examination Appearance: Disheveled Consciousness: Alert Orientation: Person, Place (at least) Motor Activity: Other (no motor abnormalities noted) Speech: Slow, Speech impediment Language: Adequate Fund of Knowledge: Adequate Attention and Concentration: Adequate Memory: Unremarkable Mood: Sad, Other (dysphoric) Affect: Labile, Other (consistent with mood) Thought Process & Associations: Intact Thought Content: Delusional Hallucination Type: Auditory Delusion Type: Paranoid Suicidal Ideation: No Suicidal Plan: No Suicidal Intention: No Homicidal Ideation: No Homicidal Plan: No Homicidal Intention: No Insight: Poor Judgment: Poor Results Labs Test 08/14/17 19:17 08/15/17 09:13 Phenytoin (Dilantin) Level 5.3 MCG/ML Blood Urea Nitrogen 12 MG/DL Creatinine 0.88 MG/DL Random Glucose 84 MG/DL Calcium Level 9.5 MG/DL Sodium Level 137 MEQ/L Potassium Level 4.1 MEQ/L Chloride Level 100 MEQ/L Carbon Dioxide Level 30.3 MEQ/L Anion Gap 7 MEQ/L Estimat Glomerular Filtration Rate 107 ML/MIN Total Creatine Kinase 647 U/L Creatine Kinase MB 2.8 NG/ML Creatine Kinase MB % 0.4 % Vitals/IOs Vital Signs Date Time Temp Pulse Resp B/P (MAP) Pulse Ox O2 Delivery O2 Flow Rate FiO2 08/15/17 08:15 18 08/15/17 05:40 97.2 71 117/65 (82) 97 08/13/17 14:24 Room Air Assessment & Plan Problem List: (1) Brief psychotic disorder ICD Codes: F23 - Brief psychotic disorder (2) Antisocial personality disorder ICD Codes: F60.2 - Antisocial personality disorder (3) Polysubstance abuse ICD Codes: F19.10 - Other psychoactive substance abuse, uncomplicated Assessment & Plan Continue current tx plan Estimated LOS: days Justification for Cont. Inpt. monitoring for safety Request HC Surrog/Guard Advoc?: Guera Baca MD Aug 15, 2017 13:16
[2017-08-15] MEDS: lamoTRIgine 100 MG TAB PO SCH (21:38)
[2017-08-16 05:47] VITALS: BP 110/71; PULSE 84; RESP 17; TEMP 97.3; O2SAT 100
[2017-08-16] MEDS: IBUPROFEN 600 MG TAB PO SCH ×3 (06:15→21:06)
[2017-08-16] MEDS: PHENYTOIN SODIUM 30 MG CAP PO SCH ×3 (08:22→17:35)
[2017-08-16] MEDS: clonazePAM 0.5 MG TAB PO SCH ×3 (08:22→17:35)
[2017-08-16] MEDS: MULTIVITAMIN TAB PO SCH (08:22)
[2017-08-16] MEDS: PHENYTOIN SODIUM 100 MG CAP PO SCH ×3 (08:22→17:34)
[2017-08-16] MEDS: THIAMINE HCL 100 MG TAB PO SCH (08:22)
[2017-08-16] MEDS: FOLIC ACID 1 MG TAB PO SCH (08:22)
[2017-08-16] MEDS: QUEtiapine FUMARATE 25 MG TAB PO SCH ×2 (08:23→20:29)
[2017-08-16] MEDS: REMOVE OLD PATCH T-DERMAL SCH (09:00)
[2017-08-16] MEDS: NICOTINE 21 MG/24 HR PATCH T-DERMAL SCH (09:00)
--- NOTE | 2017-08-16 13:05 | EKG ---
Date Performed: 08/14/2017 Time Performed: 13:03:16 PTAGE: 21 years EKG: Sinus rhythm BORDERLINE RIGHT AXIS DEVIATION Compared to prior tracing no significant change BORDERLINE ECG PREVIOUS TRACING : 09/23/2016 08.58 DOCTOR: Guilherme Gonzalez Interpretating Date/Time 08/16/2017 13:03:33
--- NOTE | 2017-08-16 16:37 | HHI.PYPN ---
Subjective Chief Complaint: "I don't know." Remarks Pt seen and discussed with staff. He was angry this morning and would not get out of bed. He calmed down and visited with mother and has had a better afternoon. No SI/HI. Mental Status Examination Appearance: Disheveled Consciousness: Alert Orientation: Person, Place (at least) Motor Activity: Other (no motor abnormalities noted) Speech: Slow, Speech impediment Language: Adequate Fund of Knowledge: Adequate Attention and Concentration: Adequate Memory: Unremarkable Mood: Anxious Affect: Other (consistent with mood) Thought Process & Associations: Intact Thought Content: Delusional Hallucination Type: Auditory Delusion Type: Paranoid Suicidal Ideation: No Suicidal Plan: No Suicidal Intention: No Homicidal Ideation: No Homicidal Plan: No Homicidal Intention: No Insight: Poor Judgment: Poor Results Vitals/IOs Vital Signs Date Time Temp Pulse Resp B/P (MAP) Pulse Ox O2 Delivery O2 Flow Rate FiO2 08/16/17 05:47 97.3 84 17 110/71 (84) 100 08/13/17 14:24 Room Air Assessment & Plan Problem List: (1) Brief psychotic disorder ICD Codes: F23 - Brief psychotic disorder (2) Antisocial personality disorder ICD Codes: F60.2 - Antisocial personality disorder (3) Polysubstance abuse ICD Codes: F19.10 - Other psychoactive substance abuse, uncomplicated Assessment & Plan continue current tx plan Estimated LOS: days Justification for Cont. Inpt. risk of decompensation Request HC Surrog/Guard Advoc?: Guera Baca MD Aug 16, 2017 16:37
[2017-08-16 17:50] VITALS: BP 97/66; PULSE 98; RESP 18; TEMP 98.5; O2SAT 100
[2017-08-16] MEDS: lamoTRIgine 100 MG TAB PO SCH (20:32)
[2017-08-17] MEDS: IBUPROFEN 600 MG TAB PO SCH ×2 (05:58→13:19)
[2017-08-17 06:09] VITALS: BP 118/55; PULSE 65; RESP 16; TEMP 97.3; O2SAT 99
[2017-08-17] MEDS ORDERED: SERO50TA PO (08:49)
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
[2017-08-17] MEDS: REMOVE OLD PATCH T-DERMAL SCH (09:00)
[2017-08-17] MEDS: NICOTINE 21 MG/24 HR PATCH T-DERMAL SCH (09:00)
[2017-08-17 09:12] LABS: BICARBONATE 30.4 MEQ/L (21.0-32.0); CALCIUM 9.1 MG/DL (8.5-10.1); CREATININE 0.82 MG/DL (0.60-1.30)
[2017-08-17] MEDS: clonazePAM 0.5 MG TAB PO SCH ×2 (09:17→13:18)
[2017-08-17] MEDS: PHENYTOIN SODIUM 30 MG CAP PO SCH ×2 (09:17→13:18)
[2017-08-17] MEDS: MULTIVITAMIN TAB PO SCH (09:17)
[2017-08-17] MEDS: THIAMINE HCL 100 MG TAB PO SCH (09:17)
[2017-08-17] MEDS: FOLIC ACID 1 MG TAB PO SCH (09:17)
[2017-08-17] MEDS: PHENYTOIN SODIUM 100 MG CAP PO SCH ×2 (09:17→13:18)
[2017-08-17] MEDS: QUEtiapine FUMARATE 25 MG TAB PO SCH (09:18)
[2017-08-17 14:29] VITALS: RESP 18
== END 2017-08-17 15:45 | disposition home or self-care (01) | DRG 885 ==
LOC: NEPE 22:26 → NEDA 08-13 17:01 → H4EA 08-13 17:35 → H270 08-13 18:35
PROVIDERS: ADMIT Psychiatry & Neurology Psychiatry; ATTEND Psychiatry & Neurology Psychiatry
DX: F23 Brief psychotic disorder (principal); Z78.1 Physical restraint status; G40.909 Epilepsy, unspecified, not intractable, without status epilepticus; F60.2 Antisocial personality disorder; F19.10 Other psychoactive substance abuse, uncomplicated; F90.9 Attention-deficit hyperactivity disorder, unspecified type; H91.92 Unspecified hearing loss, left ear; F17.210 Nicotine dependence, cigarettes, uncomplicated; Z91.5 Personal history of self-harm; Z87.820 Personal history of traumatic brain injury
CPT/HCPCS: 80048; 80053; 80061; 80175; 80185; 80307; 81001; 82550; 82552; 83036; 84443; 85025; 90471; 90714; 93005; 95819; 96372; 96374; J1200; J1630; J2060; J3486

== ENCOUNTER 2017-10-26 13:37 | Inpatient (IN) | payer OTHER ==
[~2017-10-26] VITALS: Ht 175.3 cm; Wt 68.0 kg
[~2017-10-26 13:37] MED LIST changes: -ADDE30TA PO; -AMPH1TAB83 PO; -COMMODE PAIL WI1 MIS; +DIAZ10TA PO; -HOSP BED1; -LEVE500 PO; -QUET5TAB PO; +SERO50TA PO; -WHEEMIS3
[2017-10-26] MEDS ORDERED: SODIUM CHLOR 0.9% 1000 ML INJ 1,000 ML IV ONE (13:57)
[2017-10-26 14:03] VITALS: BP 131/60; PULSE 78; RESP 16; TEMP 98.7; O2SAT 96
--- NOTE | 2017-10-26 14:03 | PD ---
HPI Chief Complaint: s/p seizure activity Time Seen by Provider: 13:56 Travel History International Travel<30 days: No Contact w/Intl Traveler<30days: No History of Present Illness HPI 21y male with a history of seizures s/p TBI presents to the ED via evac after 3 seizures that occurred today, 1 of which was witnessed by EVAC. He was in a postictal versus sedated state upon evaluation after EVAC administered 2mg Ativan to arrest the seizure activity. They described the seizure activity as normal for the patient which includes just the upper extremities and head. Says his Keppra was recently stopped but could not tell me when. He apparently went to his neurologist's office where he had 'normal blood levels' of his medications 1 week ago. Patient denies fevers or chills. Denies any recent infections and states compliance of medication. PFSH Past Medical History ADD: Yes ADHD: Yes Bipolar Disorder: Yes Anxiety: Yes Depression: Yes Cancer: No Cardiovascular Problems: No Diabetes: No Diminished Hearing: No Endocrine: No Genitourinary: No Headaches: No Immune Disorder: No Musculoskeletal: No Neurologic: Yes (traumatic brain injury S/P HALFWAY) Psychiatric: Yes (History of treatment for ADHD) Reproductive: No Respiratory: No Immunizations Current: Yes Migraines: No Seizures: Yes Thyroid Disease: No Ulcer: No Past Surgical History Abdominal Surgery: No AICD: No Appendectomy: No Arteriovenous Shunt: Yes Cardiac Surgery: No Section: No Cholecystectomy: No Ear Surgery: No Endocrine Surgery: No Eye Surgery: No Genitourinary Surgery: No Gynecologic Surgery: No Insulin Pump: No Joint Replacement: No Neurologic Surgery: Yes (subdural hematoma evac., HAIRSPRING FABRICATION SUPERVISOR SHUNT (07/02)) Oral Surgery: No Pacemaker: No Thoracic Surgery: No Other Surgery: Yes Social History Alcohol Use: Yes (OCC) Tobacco Use: Yes (1/2 PPD) Allergies-Medications (Allergen,Severity, Reaction): Coded Allergies: *MDRO Multi-Drug Resistant Organism (Verified Adverse Reaction, Unknown, ) 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) Reported Meds & Prescriptions Reported Meds & Active Scripts Active Oxycodone (Oxycodone HCl) 5 Mg Tab 5 Mg PO BID PRN Lamictal (Lamotrigine) 100 Mg Tab 300 Mg PO HS Ibuprofen 600 Mg Tab 600 Mg PO Q8HR Reported Seroquel (Quetiapine Fumarate) 50 Mg Tab 50 Mg PO HS Diazepam 10 Mg Tab 10 Mg PO DAILY PRN Clonazepam 0.5 Mg Tab 0.5 Mg PO TID One Daily (Multiple Vitamin) 1 Tab 1 Tab PO DAILY Dilantin (Phenytoin Extended) 100 Mg Cap 200 Mg PO BID Dilantin (Phenytoin Extended) 30 Mg Cap 30 Mg PO BID Review of Systems Except as stated in HPI: all other systems reviewed are Neg Physical Exam Narrative GENERAL: WD, WN, sedated vs postictal SKIN: Focused skin assessment warm/dry. previous tracheostomy scar HEAD: Atraumatic. Normocephalic. EYES: Pupils equal and round. No scleral icterus. No injection or drainage. left gaze with occasional gaze to midline head rotating to the left without crossing midline to the right. ENT: No nasal bleeding or discharge. Mucous membranes pink and moist. NECK: Trachea midline. No JVD. No lymphadenopathy CARDIOVASCULAR: Regular rate and rhythm. No murmur appreciated. RESPIRATORY: No accessory muscle use. Clear to auscultation. Breath sounds equal bilaterally. GASTROINTESTINAL: Abdomen soft, non-tender, nondistended. MUSCULOSKELETAL: No obvious deformities. No clubbing. No cyanosis. No edema. NEUROLOGICAL: Awake and alert. left facial drooping with slurred speech. Pt unable to move the left upper extremity. unaware that I am touching his arm. PSYCHIATRIC: Appropriate mood and affect; insight and judgment normal. Data Data Last Documented VS Vital Signs Date Time Temp Pulse Resp B/P (MAP) Pulse Ox O2 Delivery O2 Flow Rate FiO2 10/26/17 15:04 16 98 Room Air 10/26/17 15:04 78 124/72 (89) 10/26/17 14:03 98.7 Orders Orders Complete Blood Count With Diff (10/26/17 13:57) Phenytoin (Dilantin) (10/26/17 13:57) Electrocardiogram (10/26/17 ) Blood Glucose (10/26/17 13:57) Iv Access Insert/Monitor (10/26/17 13:57) Oximetry (10/26/17 13:57) Comprehensive Metabolic Panel (10/26/17 13:57) Sodium Chlor 0.9% 1000 Ml Inj (Ns 1000 M (10/26/17 13:57) Ct Brain W/O Iv Contrast(Rout) (10/26/17 ) I-Stat Profile (10/26/17 14:06) Prothrombin Time / Inr (Pt) (10/26/17 14:06) Act Partial Throm Time (Ptt) (10/26/17 14:06) Cta Brain W Iv Contrast W 3d (10/26/17 ) Cta Neck W Iv Contrast W 3d (10/26/17 ) Iohexol 350 Inj (Omnipaque 350 Inj) (10/26/17 14:30) Ckmb (Isoenzyme) Profile (10/26/17 14:34) Portable Eeg (10/26/17 ) Ondansetron Inj (Zofran Inj) (10/26/17 14:45) Ondansetron Inj (Zofran Inj) (10/26/17 14:43) Morphine Inj (Morphine Inj) (10/26/17 15:45) Phenytoin Inj (Dilantin Inj) (10/26/17 16:00) Admit Order (Ed Use Only) (10/26/17 16:05) Labs Laboratory Tests Test 10/26/17 14:04 White Blood Count 4.9 TH/MM3 Red Blood Count 4.78 MIL/MM3 Hemoglobin 15.1 GM/DL Hematocrit 43.9 % Mean Corpuscular Volume 91.9 FL Mean Corpuscular Hemoglobin 31.6 PG Mean Corpuscular Hemoglobin Concent 34.4 % Red Cell Distribution Width 14.2 % Platelet Count 283 TH/MM3 Mean Platelet Volume 8.3 FL Neutrophils (%) (Auto) 66.9 % Lymphocytes (%) (Auto) 20.7 % Monocytes (%) (Auto) 9.7 % Eosinophils (%) (Auto) 2.4 % Basophils (%) (Auto) 0.3 % Neutrophils # (Auto) 3.3 TH/MM3 Lymphocytes # (Auto) 1.0 TH/MM3 Monocytes # (Auto) 0.5 TH/MM3 Eosinophils # (Auto) 0.1 TH/MM3 Basophils # (Auto) 0.0 TH/MM3 CBC Comment DIFF FINAL Differential Comment Blood Urea Nitrogen 15 MG/DL Creatinine 0.79 MG/DL Random Glucose 87 MG/DL Total Protein 7.2 GM/DL Albumin 3.9 GM/DL Calcium Level 9.2 MG/DL Alkaline Phosphatase 94 U/L Aspartate Amino Transf (AST/SGOT) 29 U/L Alanine Aminotransferase (ALT/SGPT) 46 U/L Total Bilirubin 0.3 MG/DL Sodium Level 140 MEQ/L Potassium Level 4.1 MEQ/L Chloride Level 106 MEQ/L Carbon Dioxide Level 24.6 MEQ/L Anion Gap 9 MEQ/L Estimat Glomerular Filtration Rate 122 ML/MIN Phenytoin (Dilantin) Level 8.7 MCG/ML MDM Medical Decision Making Medical Screen Exam Complete: Yes Emergency Medical Condition: Yes Differential Diagnosis CVA, TIA, Cuauhtemoc's Paralysis, SAH Narrative Course 21y male with a history of seizures s/p TBI that occurred in 2016 presents to the ED s/p seizure activity x3. He was given 2mg Ativan and this stopped his seizure activity, apparently witnessed by EVAC. He apparently had just been evaluated by his neurologist and his drug levels were 'normal'. EVAC also states that he recently stopped his Keppra but could not tell me when this was. Upon evaluation in the emergency department, patient did not have motor or sensory intact to the the left upper extremity and he had a left head and eye gaze without crossing the midline. Vital signs stable. I notified my supervising physician promptly of this patient for his evaluation as well. Upon review of his medical record, patient does take Lamictal and Dilantin. Labs and imaging studies ordered. Neurology was called for consult whom did speak with Dr. Crowell. Dr. 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 Please see Dr. Crowell's note regarding this patient for more information and dispo. He will be admitted for seizure activity with Cuauhtemoc's Paralysis, subdural hematoma. Admitting Information Admitting Physician Requests: Admit Condition: Stable Mis Chowdary Oct 26, 2017 14:03
[2017-10-26 14:23] LABS: AUTOMATED NEUTROPHIL # 3.3 TH/MM3 (1.8-7.7); BASOPHIL % 0.3 % (0.0-2.0); EOSINOPHIL # 0.1 TH/MM3 (0-0.4); EOSINOPHIL % 2.4 % (0.0-4.0); HEMATOCRIT 43.9 % (39.0-51.0); HEMOGLOBIN 15.1 GM/DL (13.0-17.0); LYMPH % 20.7 % (9.0-44.0); MEAN CELL VOLUME 91.9 FL (80.0-100.0); MEAN CORPUSCULAR HEMOGLOBIN 31.6 PG (27.0-34.0); MEAN CORPUSCULAR HGB CONC 34.4 % (32.0-36.0); MEAN PLATELET VOLUME 8.3 FL (7.0-11.0); MONO % 9.7 % (0.0-8.0); MONOCYTE # 0.5 TH/MM3 (0-0.9); NEUT % 66.9 % (16.0-70.0); PLATELET COUNT 283 TH/MM3 (150-450); RED BLOOD COUNT 4.78 MIL/MM3 (4.50-5.90); RED CELL DISTRIBUTION WIDTH 14.2 % (11.6-17.2); WHITE BLOOD COUNT 4.9 TH/MM3 (4.0-11.0)
--- NOTE | 2017-10-26 14:24 | RADRPT ---
EXAM DATE/TIME: 10/26/2017 14:11 [facility] COMPARISON: CT BRAIN W/O CONTRAST, June 21, 2017, 4:20. INDICATIONS : Possible seizure today. RADIATION DOSE: 56.35 CTDIvol (mGy) MEDICAL HISTORY : Non-responsive. SURGICAL HISTORY : Non-responsive. ENCOUNTER: Initial ACUITY: 1 day PAIN SCALE: Non-responsive LOCATION: Bilateral head TECHNIQUE: Multiple contiguous axial images were obtained of the head. Using automated exposure control and adj ustment of the mA and/or kV according to patient size, radiation dose was kept as low as reasonably a chievable to obtain optimal diagnostic quality images. DICOM format image data is available electro nically for review and comparison. FINDINGS: Left frontal approach ventriculostomy catheter tip terminates in the right basal ganglia region. Ther e is dilatation of the right lateral ventricle temporal horn as well as mild interval change in encep halomalacia is noted in the right temporal lobe and right frontal lobe. The previous right frontal cr aniotomy, and patchy areas of encephalomalacia are again seen. There is a 6 mm thick hypodense right subdural collection along the right frontal and parietal region. There is no midline shift. CONCLUSION: Postsurgical changes in encephalomalacia identified with stable dilatation of the right lateral ventr icular system, and there is a hypodense subdural collection along the right frontal and parietal conv exity without midline shift. Joaquin Chaparro MD on October 26, 2017 at 14:21 Board Certified Radiologist. This report was verified electronically.
--- NOTE | 2017-10-26 14:28 | PD ---
Physical Exam Date Seen by Provider: Oct 26, 2017 Time Seen by Provider: 14:24 Narrative The patient is a 21-year-old male who was initially evaluated by the mid-level provider. Please refer to the initial history, physical, diagnostic evaluation , treatment modality plan. Data Data Last Documented VS Vital Signs Date Time Temp Pulse Resp B/P (MAP) Pulse Ox O2 Delivery O2 Flow Rate FiO2 10/26/17 15:04 16 98 Room Air 10/26/17 15:04 78 124/72 (89) 10/26/17 14:03 98.7 Orders Orders Complete Blood Count With Diff (10/26/17 13:57) Phenytoin (Dilantin) (10/26/17 13:57) Electrocardiogram (10/26/17 ) Blood Glucose (10/26/17 13:57) Iv Access Insert/Monitor (10/26/17 13:57) Oximetry (10/26/17 13:57) Comprehensive Metabolic Panel (10/26/17 13:57) Sodium Chlor 0.9% 1000 Ml Inj (Ns 1000 M (10/26/17 13:57) Ct Brain W/O Iv Contrast(Rout) (10/26/17 ) I-Stat Profile (10/26/17 14:06) Prothrombin Time / Inr (Pt) (10/26/17 14:06) Act Partial Throm Time (Ptt) (10/26/17 14:06) Cta Brain W Iv Contrast W 3d (10/26/17 ) Cta Neck W Iv Contrast W 3d (10/26/17 ) Iohexol 350 Inj (Omnipaque 350 Inj) (10/26/17 14:30) Ckmb (Isoenzyme) Profile (10/26/17 14:34) Portable Eeg (10/26/17 ) Ondansetron Inj (Zofran Inj) (10/26/17 14:45) Ondansetron Inj (Zofran Inj) (10/26/17 14:43) Morphine Inj (Morphine Inj) (10/26/17 15:45) Phenytoin Inj (Dilantin Inj) (10/26/17 16:00) Admit Order (Ed Use Only) (10/26/17 16:05) Labs Laboratory Tests Test 10/26/17 14:04 White Blood Count 4.9 TH/MM3 Red Blood Count 4.78 MIL/MM3 Hemoglobin 15.1 GM/DL Hematocrit 43.9 % Mean Corpuscular Volume 91.9 FL Mean Corpuscular Hemoglobin 31.6 PG Mean Corpuscular Hemoglobin Concent 34.4 % Red Cell Distribution Width 14.2 % Platelet Count 283 TH/MM3 Mean Platelet Volume 8.3 FL Neutrophils (%) (Auto) 66.9 % Lymphocytes (%) (Auto) 20.7 % Monocytes (%) (Auto) 9.7 % Eosinophils (%) (Auto) 2.4 % Basophils (%) (Auto) 0.3 % Neutrophils # (Auto) 3.3 TH/MM3 Lymphocytes # (Auto) 1.0 TH/MM3 Monocytes # (Auto) 0.5 TH/MM3 Eosinophils # (Auto) 0.1 TH/MM3 Basophils # (Auto) 0.0 TH/MM3 CBC Comment DIFF FINAL Differential Comment Blood Urea Nitrogen 15 MG/DL Creatinine 0.79 MG/DL Random Glucose 87 MG/DL Total Protein 7.2 GM/DL Albumin 3.9 GM/DL Calcium Level 9.2 MG/DL Alkaline Phosphatase 94 U/L Aspartate Amino Transf (AST/SGOT) 29 U/L Alanine Aminotransferase (ALT/SGPT) 46 U/L Total Bilirubin 0.3 MG/DL Sodium Level 140 MEQ/L Potassium Level 4.1 MEQ/L Chloride Level 106 MEQ/L Carbon Dioxide Level 24.6 MEQ/L Anion Gap 9 MEQ/L Estimat Glomerular Filtration Rate 122 ML/MIN Phenytoin (Dilantin) Level 8.7 MCG/ML [facility] Medical Record Reviewed: Yes Supervised Visit with KELLY: Yes Interpretation(s) Last Impressions Head CT 10/26/17 0000 Signed Impressions: Service Date/Time: Thursday, October 26, 2017 14:11 - CONCLUSION: Postsurgical changes in encephalomalacia identified with stable dilatation of the right lateral ventricular system, and there is a hypodense subdural collection along the right frontal and parietal convexity without midline shift. Joaquin Chaparro MD Vital Signs Date Time Temp Pulse Resp B/P (MAP) Pulse Ox O2 Delivery O2 Flow Rate FiO2 10/26/17 15:04 16 98 Room Air 10/26/17 15:04 78 18 124/72 (89) 94 Room Air 10/26/17 14:03 98.7 78 16 131/60 (83) 96 Laboratory Tests Test 10/26/17 14:04 White Blood Count 4.9 TH/MM3 Red Blood Count 4.78 MIL/MM3 Hemoglobin 15.1 GM/DL Hematocrit 43.9 % Mean Corpuscular Volume 91.9 FL Mean Corpuscular Hemoglobin 31.6 PG Mean Corpuscular Hemoglobin Concent 34.4 % Red Cell Distribution Width 14.2 % Platelet Count 283 TH/MM3 Mean Platelet Volume 8.3 FL Neutrophils (%) (Auto) 66.9 % Lymphocytes (%) (Auto) 20.7 % Monocytes (%) (Auto) 9.7 % Eosinophils (%) (Auto) 2.4 % Basophils (%) (Auto) 0.3 % Neutrophils # (Auto) 3.3 TH/MM3 Lymphocytes # (Auto) 1.0 TH/MM3 Monocytes # (Auto) 0.5 TH/MM3 Eosinophils # (Auto) 0.1 TH/MM3 Basophils # (Auto) 0.0 TH/MM3 CBC Comment DIFF FINAL Differential Comment Blood Urea Nitrogen 15 MG/DL Creatinine 0.79 MG/DL Random Glucose 87 MG/DL Total Protein 7.2 GM/DL Albumin 3.9 GM/DL Calcium Level 9.2 MG/DL Alkaline Phosphatase 94 U/L Aspartate Amino Transf (AST/SGOT) 29 U/L Alanine Aminotransferase (ALT/SGPT) 46 U/L Total Bilirubin 0.3 MG/DL Sodium Level 140 MEQ/L Potassium Level 4.1 MEQ/L Chloride Level 106 MEQ/L Carbon Dioxide Level 24.6 MEQ/L Anion Gap 9 MEQ/L Estimat Glomerular Filtration Rate 122 ML/MIN Phenytoin (Dilantin) Level 8.7 MCG/ML Differential Diagnosis Differential diagnosis includes seizure, postictal state, Cuauhtemoc's paralysis, intracranial hemorrhage, complicated migraine, intraventricular hemorrhage, subtherapeutic Dilantin level, Dilantin toxicity, hyponatremia, hypoglycemia. Narrative Course Patient was initially evaluated by the mid-level provider. She immediately brought to my attention that the patient had a seizure but had residual left- sided deficits with left arm and left face. The patient does have a history of traumatic brain injury with ventriculoperitoneal shunt, previous seizures, but no history of CVA. No family was with the patient. Therefore, I discussed the patient immediately with the on-call neurologist, Dr. Townsend, who stated to perform CT to evaluate for possible intracranial hemorrhage, if negative CTA to evaluate for possible large vessel occlusion. While the patient was in CTA the patient's mother arrived. I did discussion with the mother bedside. She states the patient has had paralysis of the left face and left arm that has lasted up to one hour after his seizures, appears to be Cuauhtemoc's paralysis. The patient apparently has had 3 seizures today. He is followed by the neurologist , Dr. Vang. Therefore, Dilantin level was sent to lab. CT of the brain reveals postsurgical changes and encephalomalacia identified with stable dilation of the right lateral ventricular system, and there is a hypodense subdural collection along the right frontal and parietal convexity without midline shift. I reviewed the patient's CT from 06/21/2017, which showed chronic right sided encephalomalacia but no acute intracranial findings. Therefore, a call was placed to the on-call neurosurgeon, Dr. Laboy, at 3:10 PM. I discussed the patient with Dr. Laboy who states the patient is stable to go to the floor. He will evaluate the patient in consultation. The patient's Dilantin was subtherapeutic, therefore, the patient was administered Dilantin. Physician Communication Physician Communication The residents were paged for admission. I discussed the patient with Dr. Alvarado who agrees with admission to Dr. Lucia. Diagnosis Primary Impression: Acute subdural hematoma Additional Impressions: Cuauhtemoc's paralysis Cephalgia Qualified Codes: R51 - Headache Admitting Information Admitting Physician Requests: Admit Condition: Stable Volodymyr Crowell MD Oct 26, 2017 14:28
[2017-10-26] MEDS ORDERED: IOHEXOL 350 MG/ML 10 ML VIAL (for RAD DIAG) IVCONTRAST ONE (14:30)
[2017-10-26] MEDS ORDERED: ONDANSETRON HCL 4 MG/2 ML VIAL ONE (14:43)
[2017-10-26] MEDS ORDERED: ONDANSETRON HCL 4 MG/2 ML VIAL IV PUSH ONE (14:45)
[2017-10-26 14:54] LABS: ALKALINE PHOSPHATASE 94 U/L (45-117); ALT (GPT) 46 U/L (12-78); PHENYTOIN (DILANTIN) 8.7 MCG/ML (10.0-20.0); TOTAL BILIRUBIN ADULT 0.3 MG/DL (0.2-1.0); TOTAL PROTEIN 7.2 GM/DL (6.4-8.2)
[2017-10-26] MEDS ORDERED: SERO50TA PO (15:01)
[2017-10-26 15:02] LABS: ALBUMIN 3.9 GM/DL (3.4-5.0); AST (GOT) 29 U/L (15-37); BICARBONATE 24.6 MEQ/L (21.0-32.0); BLOOD UREA NITROGEN 15 MG/DL (7-18); CALCIUM 9.2 MG/DL (8.5-10.1); CHLORIDE 106 MEQ/L (98-107); CREATININE 0.79 MG/DL (0.60-1.30); GLOMERULAR FILTRATION RATE 122 ML/MIN (>89); GLUCOSE,RANDOM 87 MG/DL (74-106); SODIUM (NA) 140 MEQ/L (136-145)
[2017-10-26 15:04] VITALS: BP 124/72; PULSE 78; RESP 16; RESP 18; O2SAT 94; O2SAT 98
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
--- NOTE | 2017-10-26 15:25 | RADRPT ---
EXAM DATE/TIME: 10/26/2017 14:20 [facility] COMPARISON: CT BRAIN W/O CONTRAST, October 26, 2017, 14:11. INDICATIONS : Possible seizure today, altered mental status. IV CONTRAST: 69 cc Omnipaque 350 (iohexol) IV RADIATION DOSE: 10.09 CTDIvol (mGy) MEDICAL HISTORY : Seizures. traumatic brain injury SURGICAL HISTORY : BUNDLE HELPER shunt ENCOUNTER: Initial ACUITY: 1 day PAIN SCALE: Non-responsive LOCATION: Bilateral neck Elevated flow velocities and ICA/CCA ratios have been found to correlate with increased degrees of vessel stenosis, calculated as percentage of diameter relative to a normal segment of distal ICA/CCA. TECHNIQUE: Volumetric scanning was performed using a multirow detector CT scanner. The data was post processed with a variety of visualization algorithms including full-volume maximum intensity projection, multip lanar sliding thin-slab reformation, curved-planar reformation, and surface-rendering techniques. Us ing automated exposure control and adjustment of the mA and/or kV according to patient size, radiatio n dose was kept as low as reasonably achievable to obtain optimal diagnostic quality images. DICOM f ormat image data is available electronically for review and comparison. FINDINGS: AORTIC ARCH: There is a three-vessel origin of the great vessels from the aorta. No evidence of ostial narrowing. RIGHT CAROTID: The common carotid artery is intact. The carotid bulb has a normal configuration without ulceration o r narrowing. The internal carotid artery lumen is smooth without stenosis. The external carotid bárbara ry is intact. LEFT CAROTID: The common carotid artery is intact. The carotid bulb has a normal configuration without ulceration or narrowing. The internal carotid artery lumen is smooth without stenosis. The external carotid ar valentino is intact. VERTEBRALS: The vertebral arteries have a symmetric diameter. No stenotic lesions are seen. CONCLUSION: 1. Normal examination. CTA of the brain is pending. Estuardo Boone MD on October 26, 2017 at 15:21 Board Certified Radiologist. This report was verified electronically.
--- NOTE | 2017-10-26 15:26 | RADRPT ---
EXAM DATE/TIME: 10/26/2017 14:20 [facility] COMPARISON: CTA BRAIN W 3D RECON, May 13, 2016, 16:49. INDICATIONS : Possible seizure today, altered mental status. IV CONTRAST: 69 cc Omnipaque 350 (iohexol) IV ; Cumulative dose for multiple exams. RADIATION DOSE: 10.09 CTDIvol (mGy) ; Combined studies MEDICAL HISTORY : Seizures. traumatic brain injury SURGICAL HISTORY : NAILER HAND shunt ENCOUNTER: Initial ACUITY: 1 day PAIN SCALE: Non-responsive LOCATION: Bilateral head TECHNIQUE: Volumetric scanning was performed using a multi-row detector CT scanner. The data was post processed with a variety of visualization algorithms including full volume maximum intensity projection, multi -planar sliding thin slab reformation, curved planar reformation, and surface rendering techniques. Using automated exposure control and adjustment of the mA and/or kV according to patient size, radiat ion dose was kept as low as reasonably achievable to obtain optimal diagnostic quality images. DICO M format image data is available electronically for review and comparison. FINDINGS: Redemonstration of postsurgical features of decompressive right sided craniectomy with intraventricul ar shunt and pressure monitor in place. Anterior circulation: Distal intracranial internal carotid arteries are patent with flow extending to the middle and anteri or cerebral arteries. Right A1 segment is small in caliber but unchanged from prior exam. There is no evidence for aneurysm, vessel truncation or stenosis, and no evidence for vascular malformation. Posterior circulation: Small caliber bilateral vertebral arteries and basilar artery. This is unchanged in appearance in com parison to prior exam. The posterior communicating arteries are patent bilaterally and supplied the p osterior cervical arteries. There is no evidence for aneurysm, vessel truncation or stenosis, and no evidence for vascular malformation. CONCLUSION: 1. Stable CT examination without evidence for significant vasospasm, large vessel occlusion or aneury sm. Lopez Landaverde MD on October 26, 2017 at 15:05 Board Certified Radiologist. This report was verified electronically.
[2017-10-26] MEDS ORDERED: MORPHINE SULFATE 4 MG/ML INJ IV PUSH ONE (15:45)
[2017-10-26] MEDS ORDERED: PHENYTOIN INJ 1,000 MG in SODIUM CHLORIDE 0.9% INJ 100 ML IV ONE (16:00)
[2017-10-26] MEDS ORDERED: SODIUM CHLORIDE 0.9% FLUSH 10 ML FLUSH IV FLUSH PRN (16:30)
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
[2017-10-26] MEDS ORDERED: SENNOSIDES 8.6 MG TAB PO PRN (17:15)
[2017-10-26] MEDS ORDERED: LACTULOSE SYRUP 20 GM/30 ML CUP PO PRN (17:15)
[2017-10-26] MEDS ORDERED: NALOXONE HCL 0.4 MG/ML AMP IV PUSH PRN (17:15)
[2017-10-26] MEDS ORDERED: MAGNESIUM HYDROXIDE SUSP 30 ML CUP PO PRN (17:15)
[2017-10-26] MEDS ORDERED: BISACODYL 10 MG SUPP RECTAL PRN (17:15)
[2017-10-26] MEDS ORDERED: DIAZEPAM 10 MG TAB PO PRN (18:15)
[2017-10-26 18:57] VITALS: BP 116/68; PULSE 81; RESP 18; O2SAT 96
[2017-10-26] MEDS: ONDANSETRON HCL 4 MG/2 ML VIAL IVP PRN (19:08)
[2017-10-26 19:09] VITALS: BP 116/68; PULSE 73; RESP 18; O2SAT 99
[2017-10-26 19:30] VITALS: O2SAT 96
[2017-10-26] MEDS: SODIUM CHLORIDE 0.9% FLUSH 10 ML FLUSH IV FLUSH SCH (21:00)
[2017-10-26] MEDS ORDERED: QUEtiapine FUMARATE 25 MG TAB PO SCH (21:00)
[2017-10-26] MEDS ORDERED: lamoTRIgine 100 MG TAB PO SCH (21:00)
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
[2017-10-26] MEDS ORDERED: ACETAMINOPHEN 1000 MG/100 ML 65 ML IV ONE (21:30)
[2017-10-26] MEDS ORDERED: METOCLOPRAMIDE HCL 10 MG/2 ML VIAL IV PUSH PRN (21:30)
[2017-10-26] MEDS ORDERED: IBUPROFEN 600 MG TAB PO SCH (22:00)
[2017-10-26] MEDS ORDERED: PROMETHAZINE HCL 25 MG SUPP RECTAL PRN (23:45)
[2017-10-26] MEDS ORDERED: LORazepam 2 MG/ML VIAL IV PUSH PRN (23:45)
[2017-10-27] VITALS: BP 114/60; PULSE 80; RESP 18; TEMP 98.6; O2SAT 96
[2017-10-27] MEDS: ONDANSETRON HCL 4 MG/2 ML VIAL IVP PRN (03:10)
[2017-10-27] MEDS ORDERED: ADDE10 PO (06:19)
[2017-10-27] MEDS ORDERED: ADDE30XR PO (06:19)
[2017-10-27 08:00] VITALS: BP 120/72; PULSE 77; RESP 20; TEMP 97.8; O2SAT 98
[2017-10-27] MEDS: SODIUM CHLORIDE 0.9% FLUSH 10 ML FLUSH IV FLUSH SCH (09:00)
[2017-10-27] MEDS: clonazePAM 0.5 MG TAB PO SCH ×2 (10:05→13:58)
[2017-10-27 11:51] VITALS: BP 125/72; PULSE 76; RESP 17; TEMP 97.8; O2SAT 98
--- NOTE | 2017-10-27 11:56 | MG ---
cc: Earl Vang MD EEG RECORD #: [id number] A 21-year-old, history of headache, seizure activity. Frontal electrical myogenic artifact occurring almost throughout the recording. Background rhythm shows delta theta frequencies, 10-30 microvolts. Having emesis toward the end of the recording. EKG showing sinus rhythm. Reasonably good EEG variability, reactivity. Appearance of mild asymmetric right hemispheric slowing. INTERPRETATION: Mild encephalopathy with mild asymmetric right hemispheric slowing, artifact, no active seizure activity noted. Clinical correlation. Earl Vang MD MG/TI , 11:47 AM , 11:56 AM
[2017-10-27] MEDS ORDERED: IBUPROFEN 800 MG TAB PO PRN (13:00)
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
[2017-10-27] MEDS ORDERED: DEXTROAMPHETAMINE/AMPHETAMINE XR 30 MG CAP PO SCH (14:00)
[2017-10-27] MEDS ORDERED: DILA30CA PO (14:20)
[2017-10-27] MEDS ORDERED: DILA100C PO (14:20)
--- NOTE | 2017-10-27 14:22 | HHI.DCPOC ---
Discharge Care Plan Diagnosis: (1) Seizure (2) Subdural hematoma Goals to Promote Your Health * To prevent worsening of your condition and complications * To maintain your health at the optimal level Directions to Meet Your Goals Take your medications as prescribed Follow your dietary instruction Follow activity as directed Keep your appointments as scheduled Take your immunizations and boosters as scheduled If your symptoms worsen call your PCP, if no PCP go to Urgent Care Center or Emergency Room Smoking is Dangerous to Your Health. Avoid second hand smoke Call the 24-hour hour crisis hotline for domestic abuse at Navjot Alvarado MD R1 Oct 27, 2017 14:21
[2017-10-27] MEDS ORDERED: PHENYTOIN SODIUM 100 MG CAP PO ONE (14:30)
[2017-10-27] MEDS ORDERED: PHENYTOIN SODIUM 30 MG CAP PO ONE (14:30)
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
[2017-10-27] MEDS ORDERED: PROM2SUP RECTAL (15:15)
[2017-10-27 15:51] VITALS: BP 111/65; PULSE 74; RESP 18; TEMP 97.6; O2SAT 98
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
--- NOTE | 2017-10-27 20:04 | EKG ---
Date Performed: 10/26/2017 Time Performed: 18:48:50 PTAGE: 21 years EKG: Sinus rhythm WITH MARKED SINUS ARRHYTHMIA MARKED RIGHT AXIS DEVIATION ABNORMAL ECG Since the PREVIOUS TRACING , no significant change noted DOCTOR: Monico Medrano Interpretating Date/Time 10/27/2017 20:03:58
== END 2017-10-27 16:15 | disposition home or self-care (01) | DRG 101 ==
LOC: NEPC 13:37 → NEDA 16:06 → NEDH 20:22 → N05B 10-27 11:28
PROVIDERS: ADMIT Family Medicine; ATTEND Family Medicine
DX: G40.909 Epilepsy, unspecified, not intractable, without status epilepticus (principal); G83.84 Todd's paralysis (postepileptic); F17.210 Nicotine dependence, cigarettes, uncomplicated; F31.9 Bipolar disorder, unspecified; F41.9 Anxiety disorder, unspecified; R10.9 Unspecified abdominal pain; R45.4 Irritability and anger; Z98.2 Presence of cerebrospinal fluid drainage device; Z87.820 Personal history of traumatic brain injury; S06.5X9D Traumatic subdural hemorrhage with loss of consciousness of unspecified duration, subsequent encounter; V29.9XXD Motorcycle rider (driver) (passenger) injured in unspecified traffic accident, subsequent encounter
CPT/HCPCS: 70450; 70496; 70498; 80053; 80185; 85025; 93005; 95819; 96374; 96375; J0131; J1165; J2270; J2405; J2765; J7030; Q9967